=== PATIENT | female | born 1970 | race Caucasian/White ===

== ENCOUNTER 2016-12-11 11:51 | Inpatient (IN) | payer BC ==
[~2016-12-11] VITALS: Ht 154.9 cm; Wt 63.4 kg
[2016-12-11] MEDS: SODIUM CHLORIDE 0.9% 1,000 ML IV SCH ×3 (12:28→18:07)
[2016-12-11] MEDS ORDERED: InsuLIN R (HUMAN) 100 UNITS in SODIUM CHL 0.9% 99 ML IV SCH ×2 (12:28→14:38)
[2016-12-11] MEDS ORDERED: DEXTROSE (50%) 50ML SYRG IV PRN ×2 (12:30→14:45)
[2016-12-11 13:07] LABS: Basophils # (auto) 0.1 uL; Basophils % (auto) 0.7 % (0.0-2.0); CONDITION Y; Eosinophils # (auto) 0 uL; Eosinophils % (auto) 0.1 % (0.0-7.0); Hematocrit 44.4 % (36.0-46.0); Hemoglobin 14.7 g/dL (12.2-16.2); Lymphocytes # (auto) 2.4 uL; Lymphocytes % (auto) 15.4 % (10.0-50.0); Mean Corpuscular Hemoglobin 33.4 pg (28.0-32.0); Mean Corpuscular Hgb Conc. 33.2 g/dL (32.0-36.0); Mean Corpuscular Volume 100.7 fL (80.0-100.0); Mean Platelet Volume 8.7 fL (7.4-10.4); Monocytes # (auto) 0.5 uL; Neutrophils # (auto) 12.5 uL; Neutrophils % (auto) 80.8 % (37.0-80.0); Platelet Count (auto) 436 10^3/uL (140-450); Red Cell Distribution Width 14.5 % (11.6-16.0); White Blood Cell 15.4 10^3/uL (4.4-10.8)
[2016-12-11] MEDS: ACCU-CHEK COMFORT CURVE STRIP VI SCH ×18 (13:36→23:59)
[2016-12-11 14:26] LABS: Urine RBC None Seen /hpf (0 - 4)
[2016-12-11] MEDS ORDERED: SODIUM CHLORIDE 0.9% 1,000 ML IV SCH ×3 (14:38→20:38)
[2016-12-11 14:41] LABS: Urine Bilirubin Negative (Negative); Urine Blood Negative /uL (Negative); Urine Glucose 4+ mg/dL (Normal); Urine Ketone 4+ (Negative); Urine Mucus FEW (None Seen); Urine Nitrite Negative (Negative); Urine Squamous Epithelial Cell FEW /hpf (<5); Urine Urobilinogen Normal (Negative)
[2016-12-11 14:43] LABS: Urine Color Straw (Yellow)
[2016-12-11] MEDS ORDERED: POTASSIUM CHL 20MEQ/100ML 200 ML IV PRN (14:45)
[2016-12-11] MEDS ORDERED: MORPHINE SULF INJ 2 MG/ML SYRINGE 1ML IV PRN ×2 (14:45)
[2016-12-11] MEDS ORDERED: LORazepam 2MG/ML-1ML VIAL IV PRN (14:45)
[2016-12-11] MEDS ORDERED: POTASSIUM CHL 10MEQ/50ML 150 ML IV PRN (14:45)
[2016-12-11] MEDS ORDERED: MAGNESIUM SULFATE 1GM/100ML 200 ML IV ONE (14:45)
[2016-12-11] MEDS ORDERED: POTASSIUM CHL 20MEQ/100ML 100 ML IV PRN (14:45)
[2016-12-11] MEDS ORDERED: ONDANSETRON HCL 4 MG/2 ML VIAL IV PRN (14:45)
[2016-12-11] MEDS ORDERED: HYDROcodone-ACET 5/325MG TAB PO PRN (14:45)
[2016-12-11] MEDS ORDERED: cefTRIAXone 1GM/50ML D5W 50 ML IV ONE (14:45)
[2016-12-11] MEDS ORDERED: NITROGLYCERIN 0.4 MG SL TAB SL PRN (14:45)
[2016-12-11] MEDS ORDERED: INSLANTI SC (14:55)
[2016-12-11] MEDS ORDERED: INSLISPI SC (14:55)
[2016-12-11] MEDS ORDERED: THIAMINE HCL 100 MG TAB PO ONE (15:00)
[2016-12-11] MEDS ORDERED: FOLIC ACID 1 MG TAB PO ONE (15:00)
[2016-12-11] MEDS: InsuLIN R (HUMAN) 100 UNITS in SODIUM CHL 0.9% 99 ML IV SCH (15:06)
[2016-12-11] MEDS ORDERED: MULTIPLE VITAMINS W/ MINERALS TAB PO ONE (15:45)
[2016-12-11 16:32] LABS: Potassium 4.6 mmol/L (3.5-5.1)
[2016-12-11 16:33] LABS: BUN/Creatinine Ratio 18.5; Calcium 8.5 mg/dL (8.5-10.1); Magnesium 3.7 mg/dL (1.6-2.6)
[2016-12-11 19:17] LABS: BUN/Creatinine Ratio 21.7; Calcium 8.2 mg/dL (8.5-10.1); Magnesium 3.2 mg/dL (1.6-2.6); Potassium 3.9 mmol/L (3.5-5.1)
[2016-12-11 20:00] VITALS: BP 126/67
[2016-12-11 21:00] VITALS: BP 120/68
[2016-12-11 22:00] VITALS: BP 116/53
[2016-12-11] MEDS ORDERED: POTASSIUM CHL 10MEQ/50ML 50 ML IV PRN (22:45)
[2016-12-11 23:00] VITALS: BP 121/52
[2016-12-12] VITALS (34 sets, daily range): BP systolic 100–125; BP diastolic 44–83
[2016-12-12] MEDS: InsuLIN R (HUMAN) 100 UNITS in SODIUM CHL 0.9% 99 ML IV SCH ×2 (00:38→12:21)
[2016-12-12] MEDS: SODIUM CHLORIDE 0.9% 1,000 ML IV SCH ×4 (01:08→20:52)
[2016-12-12] MEDS ORDERED: PANT40TA2 PO (01:12)
[2016-12-12] MEDS ORDERED: LEV50T PO (01:12)
[2016-12-12] MEDS ORDERED: TRAZ150T79 PO (01:12)
[2016-12-12] MEDS ORDERED: SIMV10TA84 PO (01:12)
[2016-12-12] MEDS ORDERED: OXCA600T3 PO (01:12)
[2016-12-12] MEDS ORDERED: LEVO88TA4 PO (01:12)
[2016-12-12] MEDS ORDERED: LEVEMIR SC (01:12)
[2016-12-12] MEDS ORDERED: KETO75CA PO (01:12)
[2016-12-12] MEDS: ACCU-CHEK COMFORT CURVE STRIP VI SCH ×21 (01:19→22:16)
[2016-12-12 03:45] LABS: Basophils # (auto) 0 uL; Basophils % (auto) 0.3 % (0.0-2.0); Eosinophils # (auto) 0 uL; Eosinophils % (auto) 0.1 % (0.0-7.0); Hematocrit 32.5 % (36.0-46.0); Lymphocytes # (auto) 3.8 uL; Lymphocytes % (auto) 29.5 % (10.0-50.0); Mean Corpuscular Hemoglobin 33.3 pg (28.0-32.0); Mean Corpuscular Hgb Conc. 33.8 g/dL (32.0-36.0); Mean Corpuscular Volume 98.5 fL (80.0-100.0); Mean Platelet Volume 7.3 fL (7.4-10.4); Monocytes % (auto) 7.7 % (0.0-12.0); Neutrophils % (auto) 62.4 % (37.0-80.0); Platelet Count (auto) 227 10^3/uL (140-450); Red Cell Distribution Width 12.9 % (11.6-16.0); White Blood Cell 12.8 10^3/uL (4.4-10.8)
[2016-12-12 04:01] LABS: Albumin 2.8 g/dL (3.4-5.0); Potassium 3.7 mmol/L (3.5-5.1)
[2016-12-12 04:03] LABS: BUN/Creatinine Ratio 15.6
[2016-12-12 04:06] LABS: Bilirubin, Total 0.4 mg/dL (0.2-1.0); Total Protein 5.4 g/dL (6.4-8.2)
[2016-12-12] MEDS: cefTRIAXone 1GM/50ML D5W 50 ML IV SCH (09:23)
[2016-12-12] MEDS: MULTIPLE VITAMINS W/ MINERALS TAB PO SCH (10:17)
[2016-12-12] MEDS: FOLIC ACID 1 MG TAB PO SCH (10:17)
[2016-12-12] MEDS: THIAMINE HCL 100 MG TAB PO SCH (10:17)
[2016-12-12] MEDS ORDERED: DEXTROSE (50%) 50ML SYRG IV PRN (11:15)
[2016-12-12] MEDS ORDERED: INSULIN DETEMIR(LEVEMIR) 1unit/0.01ml Soln (100units/ml) SC ONE (11:15)
[2016-12-12] MEDS: InsuLIN REG 1unit/0.01ml Soln (100units/ml) SC SCH ×2 (11:30→18:00)
[2016-12-12 16:18] LABS: Urine Bilirubin Negative (Negative); Urine Blood Negative /uL (Negative); Urine Color Yellow (Yellow); Urine Glucose Normal (Normal); Urine Ketone 1+ (Negative); Urine Nitrite Negative (Negative); Urine RBC 8 /hpf (0 - 4); Urine Squamous Epithelial Cell MOD /hpf (<5); Urine Urobilinogen Normal (Negative); Urine pH 5.5 (5.0-8.0)
[2016-12-12] MEDS ORDERED: InsuLIN REG 1unit/0.01ml Soln (100units/ml) SC SCH (22:00)
[2016-12-12] MEDS: INSULIN DETEMIR(LEVEMIR) 1unit/0.01ml Soln (100units/ml) SC SCH (22:16)
[2016-12-13 02:00] VITALS: BP 120/65
[2016-12-13 05:00] VITALS: BP 111/67
[2016-12-13] MEDS: InsuLIN REG 1unit/0.01ml Soln (100units/ml) SC SCH ×2 (05:01→11:53)
[2016-12-13] MEDS: ACCU-CHEK COMFORT CURVE STRIP VI SCH ×2 (05:01→11:53)
[2016-12-13] MEDS: SODIUM CHLORIDE 0.9% 1,000 ML IV SCH (05:02)
[2016-12-13 05:58] LABS: Hematocrit 36.2 % (36.0-46.0); Hemoglobin 12.5 g/dL (12.2-16.2); Mean Corpuscular Hemoglobin 33.5 pg (28.0-32.0); Mean Corpuscular Hgb Conc. 34.4 g/dL (32.0-36.0); Mean Corpuscular Volume 97.5 fL (80.0-100.0); Mean Platelet Volume 7.6 fL (7.4-10.4); Platelet Count (auto) 204 10^3/uL (140-450); Red Cell Distribution Width 12.9 % (11.6-16.0); White Blood Cell 7.1 10^3/uL (4.4-10.8)
[2016-12-13 06:03] LABS: Metamyelocytes % 0; Myelocytes % 0; Promyelocytes % 0; Reactive Lymphocytes 0
[2016-12-13 06:24] LABS: Calcium 8.9 mg/dL (8.5-10.1)
[2016-12-13 06:27] LABS: BUN/Creatinine Ratio 18.4
[2016-12-13 06:49] LABS: Platelet Estimate Adequate
[2016-12-13 06:50] LABS: RBC Morphology Normal
[2016-12-13 09:00] VITALS: BP 121/67
[2016-12-13] MEDS: cefTRIAXone 1GM/50ML D5W 50 ML IV SCH (09:35)
[2016-12-13] MEDS: MULTIPLE VITAMINS W/ MINERALS TAB PO SCH (09:35)
[2016-12-13] MEDS: THIAMINE HCL 100 MG TAB PO SCH (09:35)
[2016-12-13] MEDS: FOLIC ACID 1 MG TAB PO SCH (09:35)
[2016-12-13] MEDS: INSULIN DETEMIR(LEVEMIR) 1unit/0.01ml Soln (100units/ml) SC SCH (09:36)
[2016-12-13] MEDS ORDERED: POTASSIUM CHL 20 Meq TABLET PO ONE (11:15)
[2016-12-13 12:01] VITALS: BP 121/67
[2016-12-13 13:00] VITALS: BP 122/62
== END 2016-12-13 14:00 | disposition home or self-care (01) | DRG 682 ==
LOC: ER 11:51 → TELE 11:52 → ICU WEST 20:31 → EAST 12-13 00:17
PROVIDERS: ADMIT Internal Medicine; ATTEND Internal Medicine
DX: N17.9 Acute kidney failure, unspecified (principal); E13.10 Other specified diabetes mellitus with ketoacidosis without coma; N39.0 Urinary tract infection, site not specified; I10 Essential (primary) hypertension; E03.9 Hypothyroidism, unspecified; E86.0 Dehydration; F17.210 Nicotine dependence, cigarettes, uncomplicated; J45.909 Unspecified asthma, uncomplicated; F15.10 Other stimulant abuse, uncomplicated; F12.10 Cannabis abuse, uncomplicated; F11.10 Opioid abuse, uncomplicated; F10.10 Alcohol abuse, uncomplicated; Z79.4 Long term (current) use of insulin
CPT/HCPCS: 36415; 36600; 71010; 80048; 80053; 80307; 81001; 82010; 82805; 82962; 83036; 83735; 83930; 84100; 85007; 85025; 85027; 87081; 96365; 96367; J0696; J1815

== ENCOUNTER 2017-02-08 21:51 | Inpatient (IN) | payer BC ==
[~2017-02-08] VITALS: Ht 165.1 cm; Wt 67.1 kg
[~2017-02-08 21:51] MED LIST: INSLANTI SC; INSLISPI SC; KETO75CA PO; LEV50T PO; LEVEMIR SC; LEVO88TA4 PO; OXCA600T3 PO; PANT40TA2 PO; SIMV10TA84 PO; TRAZ150T79 PO
[2017-02-08] MEDS ORDERED: InsuLIN REG 1unit/0.01ml Soln (100units/ml) ONE (22:30)
[2017-02-08] MEDS ORDERED: SODIUM CHLORIDE 0.9% 500 ML IV ONE (22:30)
[2017-02-08 22:37] LABS: Basophils # (auto) 0.1 uL; Eosinophils # (auto) 0 uL
[2017-02-08 22:38] LABS: Basophils % (auto) 0.3 % (0.0-2.0); Eosinophils % (auto) 0.1 % (0.0-7.0); Hematocrit 42.4 % (36.0-46.0); Hemoglobin 13.2 g/dL (12.2-16.2); Lymphocytes # (auto) 1.9 uL; Mean Corpuscular Hemoglobin 32.9 pg (28.0-32.0); Mean Corpuscular Hgb Conc. 31.1 g/dL (32.0-36.0); Mean Corpuscular Volume 105.8 fL (80.0-100.0); Monocytes # (auto) 0.9 uL; Monocytes % (auto) 5.9 % (0.0-12.0); Neutrophils % (auto) 80.7 % (37.0-80.0); Platelet Count (auto) 355 10^3/uL (140-450); Red Cell Distribution Width 14.1 % (11.8-14.3); White Blood Cell 14.9 10^3/uL (4.4-10.8)
[2017-02-08] MEDS ORDERED: InsuLIN REG 1unit/0.01ml Soln (100units/ml) IV ONE (22:45)
[2017-02-08] MEDS ORDERED: SODIUM CHLORIDE 0.9% 1,000 ML IV ONE (22:45)
[2017-02-08 22:46] LABS: INR 0.92 (0.9-1.15); Lactic Acid w/Reflex 2.1 mmol/L (0.4-2.0); Partial Thromboplastin Time 24.5 sec (22.64-33.71)
[2017-02-08 22:50] LABS: Albumin 3.6 g/dL (3.4-5.0); Alkaline Phosphatase 169 U/L (45-117); Anion Gap 29 (5-15); Aspartate Aminotransferase 26 U/L (15-37); BUN/Creatinine Ratio 25.2; Bilirubin, Total 0.9 mg/dL (0.2-1.0); Blood Urea Nitrogen 32 mg/dL (7-18); Calcium 10.3 mg/dL (8.5-10.1); Carbon Dioxide 12 mmol/L (21-32); Chloride 87 mmol/L (98-107); GFR African American 58 mL/min; GFR Non-African American 48 mL/min; Potassium 4.5 mmol/L (3.5-5.1); Sodium 128 mmol/L (136-145); Total Protein 6.7 g/dL (6.4-8.2)
[2017-02-08 22:57] LABS: REFLEX LACTIC ACID YES OR NO YES
[2017-02-08 23:12] LABS: Glucose 925 mg/dL (74-106)
[2017-02-08 23:18] LABS: Urine RBC None Seen /hpf (0 - 4)
[2017-02-08 23:32] LABS: Urine Bilirubin Negative (Negative); Urine Blood Negative /uL (Negative); Urine Color Colorless (Yellow); Urine Glucose 4+ mg/dL (Normal); Urine Hyaline Cast FEW /lpf (0 - 2); Urine Ketone 4+ (Negative); Urine Nitrite Negative (Negative); Urine Urobilinogen Normal (Negative)
[2017-02-09] MEDS ORDERED: InsuLIN R (HUMAN) 100 UNITS in SODIUM CHL 0.9% 99 ML IV SCH (00:15)
[2017-02-09] MEDS: SODIUM CHLORIDE 0.9% 1,000 ML IV SCH ×2 (00:15→03:45)
[2017-02-09] MEDS: SOD CHL 0.9%/ KCL 20MEQ 1,000 ML IV SCH ×3 (00:15→10:50)
[2017-02-09] MEDS: MAGNESIUM SULFATE 1GM/100ML 200 ML IV ONE (00:15)
[2017-02-09] MEDS ORDERED: DEXTROSE (50%) 50ML SYRG IV PRN ×2 (00:15→11:45)
[2017-02-09 01:09] LABS: Basophils # (auto) 0.1 uL; Basophils % (auto) 0.4 % (0.0-2.0); Eosinophils # (auto) 0 uL; Hematocrit 41.4 % (36.0-46.0); Hemoglobin 13.4 g/dL (12.2-16.2); Lymphocytes # (auto) 1.3 uL; Lymphocytes % (auto) 9.7 % (10.0-50.0); Mean Corpuscular Hemoglobin 32.4 pg (28.0-32.0); Mean Corpuscular Hgb Conc. 32.3 g/dL (32.0-36.0); Mean Corpuscular Volume 100.2 fL (80.0-100.0); Mean Platelet Volume 7.2 fL (6.9-10.8); Monocytes # (auto) 0.6 uL; Monocytes % (auto) 4.9 % (0.0-12.0); Neutrophils # (auto) 11.2 uL; Platelet Count (auto) 311 10^3/uL (140-450); Red Cell Distribution Width 13.3 % (11.8-14.3); White Blood Cell 13.2 10^3/uL (4.4-10.8)
[2017-02-09 01:15] LABS: Allen Test Yes; Blood 02Sat 95.2 % (96-100); Blood COHb 0.3 % (0.5-1.5); Blood MetHb 0.1 % (0.0-1.5); HCO3 12.2 mmol/L (22-26.0); HHb 4.8 % (0.0-5.0); MODE ROOM AIR; O2Hb 94.8 % (94.0-97.0); PCO2 27.3 mmHg (35.0-45.0); PCO2(T) 27.3 mmHg (35.0-45.0); PO2 89.7 mmHg (80.0-100.0); PO2(T) 89.7 mmHg (80.0-100.0); Sample Type Arterial; pH 7.269 (7.350-7.450)
[2017-02-09 01:32] LABS: BUN/Creatinine Ratio 30.4; Calcium 9.8 mg/dL (8.5-10.1); Magnesium 2.8 mg/dL (1.6-2.6); Potassium 4.3 mmol/L (3.5-5.1)
[2017-02-09] MEDS: ACCU-CHEK COMFORT CURVE STRIP VI SCH ×10 (01:57→17:29)
[2017-02-09] MEDS ORDERED: ONDANSETRON HCL 4 MG/2 ML VIAL IV PRN (02:00)
[2017-02-09] MEDS ORDERED: cefTRIAXone 1GM/50ML D5W 50 ML IV ONE (02:00)
[2017-02-09] MEDS ORDERED: NITROGLYCERIN 0.4 MG SL TAB SL PRN (02:00)
[2017-02-09 03:30] LABS: Phosphorus 4.6 mg/dL (2.5-4.90)
[2017-02-09] MEDS ORDERED: SODIUM CHLORIDE 0.9% 1,000 ML IV SCH (04:15)
[2017-02-09 07:15] LABS: Calcium 8.5 mg/dL (8.5-10.1); Potassium 4.1 mmol/L (3.5-5.1)
[2017-02-09 07:19] LABS: BUN/Creatinine Ratio 31.3
[2017-02-09] MEDS ORDERED: PANTOPRAZOLE 40 MG/10 ML VIAL IV SCH (10:00)
[2017-02-09] MEDS: ENOXAPARIN SOD 40 MG/0.4 ML SYRINGE SC SCH (10:15)
[2017-02-09] MEDS ORDERED: D5W/SOD CHLO 0.9% 1,000 ML IV SCH (11:30)
[2017-02-09] MEDS ORDERED: INSULIN DETEMIR(LEVEMIR) 1unit/0.01ml Soln (100units/ml) SC ONE (11:45)
[2017-02-09] MEDS ORDERED: PANTOPRAZOLE 40 MG TAB PO ONE (13:30)
[2017-02-09] MEDS ORDERED: OXcarbazepine 300 MG TAB PO ONE (13:30)
[2017-02-09] MEDS ORDERED: LEVOTHYROXINE SODIUM 88 MCG TAB PO ONE (13:30)
[2017-02-09] MEDS ORDERED: MULTIPLE VITAMINS W/ MINERALS TAB PO ONE (13:30)
[2017-02-09 15:01] LABS: BUN/Creatinine Ratio 16.9; Calcium 8.6 mg/dL (8.5-10.1); Potassium 4.1 mmol/L (3.5-5.1)
[2017-02-09] MEDS: InsuLIN REG 1unit/0.01ml Soln (100units/ml) SC SCH (17:29)
[2017-02-09] MEDS ORDERED: InsuLIN REG 1unit/0.01ml Soln (100units/ml) SC SCH (22:00)
[2017-02-09] MEDS ORDERED: cefTRIAXone 1GM/50ML D5W 50 ML IV SCH (22:00)
[2017-02-10] MEDS: ACCU-CHEK COMFORT CURVE STRIP VI SCH ×3 (00:20→12:05)
[2017-02-10] MEDS: INSULIN DETEMIR(LEVEMIR) 1unit/0.01ml Soln (100units/ml) SC SCH ×3 (00:21→22:07)
[2017-02-10] MEDS: traZODone HCL 50 MG TAB PO SCH ×2 (00:31→21:58)
[2017-02-10] MEDS: ATORVASTATIN 20 MG TAB PO SCH ×2 (00:31→21:59)
[2017-02-10] MEDS: OXcarbazepine 300 MG TAB PO SCH ×3 (00:31→21:59)
[2017-02-10 00:50] VITALS: BP 109/55
[2017-02-10] MEDS ORDERED: INFLUENZA QUAD 2017-2018 0.5 ML SYRG IM ONE (02:00)
[2017-02-10 05:00] VITALS: BP 110/68
[2017-02-10] MEDS: LEVOTHYROXINE SODIUM 88 MCG TAB PO SCH (05:44)
[2017-02-10 06:38] LABS: Basophils # (auto) 0 uL; Basophils % (auto) 0.4 % (0.0-2.0); Eosinophils # (auto) 0 uL; Eosinophils % (auto) 0.6 % (0.0-7.0); Hematocrit 36.8 % (36.0-46.0); Hemoglobin 12.7 g/dL (12.2-16.2); Lymphocytes # (auto) 3.5 uL; Lymphocytes % (auto) 45.2 % (10.0-50.0); Mean Corpuscular Hemoglobin 33.4 pg (28.0-32.0); Mean Corpuscular Hgb Conc. 34.4 g/dL (32.0-36.0); Mean Corpuscular Volume 97.1 fL (80.0-100.0); Mean Platelet Volume 7.2 fL (6.9-10.8); Monocytes # (auto) 0.4 uL; Monocytes % (auto) 5.8 % (0.0-12.0); Neutrophils # (auto) 3.7 uL; Nucleated Red Blood Cells % 0.1 %; Platelet Count (auto) 279 10^3/uL (140-450); Red Cell Distribution Width 13.2 % (11.8-14.3); White Blood Cell 7.8 10^3/uL (4.4-10.8)
[2017-02-10 06:50] LABS: Albumin 2.8 g/dL (3.4-5.0); Calcium 8.7 mg/dL (8.5-10.1)
[2017-02-10 06:57] LABS: Bilirubin, Total 0.5 mg/dL (0.2-1.0); Total Protein 5.6 g/dL (6.4-8.2)
[2017-02-10] MEDS: InsuLIN REG 1unit/0.01ml Soln (100units/ml) SC SCH ×2 (07:00→12:05)
[2017-02-10 09:00] VITALS: BP 125/69
[2017-02-10] MEDS: MULTIPLE VITAMINS W/ MINERALS TAB PO SCH (10:00)
[2017-02-10] MEDS: ENOXAPARIN SOD 40 MG/0.4 ML SYRINGE SC SCH (10:00)
[2017-02-10] MEDS: PANTOPRAZOLE 40 MG TAB PO SCH (10:16)
[2017-02-10] MEDS ORDERED: LISI10TA6 PO (11:23)
[2017-02-10] MEDS ORDERED: D5W/SOD CHLO 0.9% 1,000 ML IV SCH (11:30)
[2017-02-10 13:00] VITALS: BP 119/65
[2017-02-10] MEDS ORDERED: POTASSIUM CHL 20 Meq TABLET PO ONE (13:00)
[2017-02-10] MEDS ORDERED: SIMV10TA84 PO (13:08)
[2017-02-10] MEDS ORDERED: LEVO88TA4 PO (13:08)
[2017-02-10] MEDS ORDERED: TRAZ150T79 PO (13:08)
[2017-02-10] MEDS ORDERED: INSLANTI SC (13:08)
[2017-02-10] MEDS ORDERED: InsuLIN R (HUMAN) 100 UNITS in SODIUM CHL 0.9% 99 ML IV SCH (13:45)
[2017-02-10 14:20] LABS: BUN/Creatinine Ratio 11.6; Calcium 8.5 mg/dL (8.5-10.1)
[2017-02-10 14:22] LABS: Lactic Acid w/Reflex 4.6 mmol/L (0.4-2.0)
[2017-02-10 14:32] LABS: REFLEX LACTIC ACID YES OR NO NO
[2017-02-10] MEDS ORDERED: DEXTROSE (50%) 50ML SYRG IV PRN ×2 (16:00→18:45)
[2017-02-10] MEDS: SODIUM CHLORIDE 0.9% 1,000 ML IV SCH (16:25)
[2017-02-10 16:50] VITALS: BP 125/50
[2017-02-10] MEDS ORDERED: ACCU-CHEK COMFORT CURVE STRIP VI SCH (17:00)
[2017-02-10] MEDS ORDERED: InsuLIN REG 1unit/0.01ml Soln (100units/ml) SC SCH (17:00)
[2017-02-10] MEDS ORDERED: InsuLIN REG 1unit/0.01ml Soln (100units/ml) SC ONE (18:45)
[2017-02-11] MEDS: InsuLIN REG 1unit/0.01ml Soln (100units/ml) SC SCH ×5 (00:37→21:48)
[2017-02-11 04:39] VITALS: BP 94/49
[2017-02-11] MEDS: SODIUM CHLORIDE 0.9% 1,000 ML IV SCH ×2 (05:20→20:24)
[2017-02-11] MEDS: LEVOTHYROXINE SODIUM 88 MCG TAB PO SCH (06:24)
[2017-02-11] MEDS: ACCU-CHEK COMFORT CURVE STRIP VI SCH ×6 (06:24→21:48)
[2017-02-11] MEDS: INSULIN DETEMIR(LEVEMIR) 1unit/0.01ml Soln (100units/ml) SC SCH ×2 (06:26→21:48)
[2017-02-11 07:10] LABS: Lactic Acid w/Reflex 2.5 mmol/L (0.4-2.0)
[2017-02-11 07:12] LABS: Potassium 3.1 mmol/L (3.5-5.1)
[2017-02-11 07:18] LABS: BUN/Creatinine Ratio 33.3; Calcium 8.5 mg/dL (8.5-10.1)
[2017-02-11 07:33] LABS: REFLEX LACTIC ACID YES OR NO NO
[2017-02-11 09:24] VITALS: BP 136/67
[2017-02-11] MEDS: ENOXAPARIN SOD 40 MG/0.4 ML SYRINGE SC SCH (10:18)
[2017-02-11] MEDS: MULTIPLE VITAMINS W/ MINERALS TAB PO SCH (10:18)
[2017-02-11] MEDS: PANTOPRAZOLE 40 MG TAB PO SCH (10:19)
[2017-02-11] MEDS: OXcarbazepine 300 MG TAB PO SCH ×2 (10:19→21:34)
[2017-02-11] MEDS ORDERED: POTASSIUM CHL 20 Meq TABLET PO ONE (11:00)
[2017-02-11] MEDS ORDERED: DEXTROSE (50%) 50ML SYRG IV PRN (11:00)
[2017-02-11] MEDS: chlordiazePOXIDE HCL 5 MG CAP PO PRN (11:21)
[2017-02-11 12:48] VITALS: BP 141/77
[2017-02-11 17:00] VITALS: BP 127/84
[2017-02-11] MEDS: traZODone HCL 50 MG TAB PO SCH (21:34)
[2017-02-11] MEDS: ATORVASTATIN 20 MG TAB PO SCH (21:34)
[2017-02-11 21:53] VITALS: BP 119/64
[2017-02-12] MEDS: SODIUM CHLORIDE 0.9% 1,000 ML IV SCH (02:26)
[2017-02-12 05:20] VITALS: BP 138/67
[2017-02-12] MEDS: ACCU-CHEK COMFORT CURVE STRIP VI SCH (05:59)
[2017-02-12] MEDS: LEVOTHYROXINE SODIUM 88 MCG TAB PO SCH (05:59)
[2017-02-12] MEDS: InsuLIN REG 1unit/0.01ml Soln (100units/ml) SC SCH (05:59)
[2017-02-12] MEDS: INSULIN DETEMIR(LEVEMIR) 1unit/0.01ml Soln (100units/ml) SC SCH (06:46)
[2017-02-12 07:07] LABS: Potassium 3.8 mmol/L (3.5-5.1)
[2017-02-12 07:09] LABS: Calcium 8.4 mg/dL (8.5-10.1); Magnesium 1.6 mg/dL (1.6-2.6)
[2017-02-12 07:15] LABS: Lactic Acid w/Reflex 2.6 mmol/L (0.4-2.0)
[2017-02-12 07:25] LABS: REFLEX LACTIC ACID YES OR NO NO
[2017-02-12 08:08] VITALS: BP 110/59
[2017-02-12] MEDS: PANTOPRAZOLE 40 MG TAB PO SCH (09:14)
[2017-02-12] MEDS: ENOXAPARIN SOD 40 MG/0.4 ML SYRINGE SC SCH (09:14)
[2017-02-12] MEDS: OXcarbazepine 300 MG TAB PO SCH (09:14)
[2017-02-12] MEDS: MULTIPLE VITAMINS W/ MINERALS TAB PO SCH (09:14)
[2017-02-12] MEDS: chlordiazePOXIDE HCL 5 MG CAP PO PRN (09:17)
== END 2017-02-12 12:00 | disposition home or self-care (01) | DRG 637 ==
LOC: EDBD 21:51 → ER 21:55 → TELE 21:56 → TELE-CENTR 02-10 00:50 → CENTRAL 02-12 00:22
PROVIDERS: ADMIT Nurse Practitioner; ATTEND Internal Medicine
DX: E11.10 Type 2 diabetes mellitus with ketoacidosis without coma (principal); G92 Toxic encephalopathy; N17.0 Acute kidney failure with tubular necrosis; R65.10 Systemic inflammatory response syndrome (SIRS) of non-infectious origin without acute organ dysfunction; Z91.14 Patient's other noncompliance with medication regimen; E03.9 Hypothyroidism, unspecified; E87.6 Hypokalemia; E11.649 Type 2 diabetes mellitus with hypoglycemia without coma; F15.10 Other stimulant abuse, uncomplicated; F17.210 Nicotine dependence, cigarettes, uncomplicated; F32.9 Major depressive disorder, single episode, unspecified; F41.9 Anxiety disorder, unspecified; I10 Essential (primary) hypertension; Z91.19 Patient's noncompliance with other medical treatment and regimen; Z79.4 Long term (current) use of insulin; Z83.3 Family history of diabetes mellitus; Z82.49 Family history of ischemic heart disease and other diseases of the circulatory system; Z91.013 Allergy to seafood
CPT/HCPCS: 36415; 36600; 70450; 71010; 80048; 80053; 80307; 80320; 81001; 82010; 82805; 82962; 83036; 83605; 83735; 83930; 84100; 84443; 84484; 84702; 85025; 85379; 85610; 85730; 87040; 93005; 96361; 96365; 96375; C9113; J0696; J1815; J7042

== ENCOUNTER 2017-03-13 06:35 | Inpatient (IN) | payer BC ==
[~2017-03-13] VITALS: Ht 165.1 cm; Wt 58.5 kg
[~2017-03-13 06:35] MED LIST changes: -KETO75CA PO; -LEV50T PO; -LEVEMIR SC; +LISI10TA6 PO
[2017-03-13] MEDS ORDERED: SODIUM CHLORIDE 0.9% 1,000 ML IV ONE ×4 (06:56→16:38)
[2017-03-13] MEDS ORDERED: diphenhdrAMINE HCL 50 MG/1 ML VL IV ONE (07:00)
[2017-03-13] MEDS ORDERED: LORazepam 2MG/ML-1ML VIAL IV ONE (07:00)
[2017-03-13 07:05] LABS: Basophils # (auto) 0.1 uL; Eosinophils # (auto) 0 uL; Eosinophils % (auto) 0.2 % (0.0-7.0); Mean Platelet Volume 8.4 fL (6.9-10.8); Red Cell Distribution Width 14.2 % (11.8-14.3); White Blood Cell 19.2 10^3/uL (4.4-10.8)
[2017-03-13 07:09] LABS: Basophils % (auto) 0.4 % (0.0-2.0); Hematocrit 46.7 % (36.0-46.0); Hemoglobin 12.7 g/dL (12.2-16.2); Lymphocytes # (auto) 3.6 uL; Mean Corpuscular Hemoglobin 32.2 pg (28.0-32.0); Mean Corpuscular Hgb Conc. 27.2 g/dL (32.0-36.0); Mean Corpuscular Volume 118.4 fL (80.0-100.0); Neutrophils # (auto) 14.4 uL; Neutrophils % (auto) 75.4 % (37.0-80.0); Platelet Count (auto) 310 10^3/uL (140-450)
[2017-03-13 07:25] LABS: Albumin 3.7 g/dL (3.4-5.0); BUN/Creatinine Ratio 20.5; Bilirubin, Total 0.4 mg/dL (0.2-1.0); Potassium 5.5 mmol/L (3.5-5.1); Total Protein 6.8 g/dL (6.4-8.2)
[2017-03-13] MEDS ORDERED: SUCCINYLCHOLINE CHLORIDE 20 MG/ML 10ML VIAL IV ONE ×2 (07:34→07:45)
[2017-03-13] MEDS ORDERED: ETOMIDATE (2MG/ML) 20ML VIAL IV ONE ×2 (07:34→07:45)
[2017-03-13] MEDS ORDERED: DEXTROSE (50%) 50ML SYRG IV PRN ×3 (07:45→23:15)
[2017-03-13 07:46] LABS: Lactic Acid w/Reflex 5.6 mmol/L (0.4-2.0)
[2017-03-13] MEDS ORDERED: MIDAZOLAM DRIP 50 mg/50mL 50 ML IV ONE (07:48)
[2017-03-13 07:49] LABS: REFLEX LACTIC ACID YES OR NO YES
[2017-03-13] MEDS ORDERED: MIDAZOLAM DRIP 50 mg/50mL 50 ML IV SCH (07:49)
[2017-03-13 07:54] LABS: INR 0.94 (0.9-1.15); Partial Thromboplastin Time 29.6 sec (22.64-33.71); Prothrombin Time 10.2 sec (9.37-12.3)
[2017-03-13] MEDS ORDERED: InsuLIN R (HUMAN) 100 UNITS in SODIUM CHL 0.9% 99 ML IV SCH ×5 (08:00→23:41)
[2017-03-13 08:04] LABS: Base Excess -30.2 mmol/L (-2.0-2.0); Blood 02Sat 96.8 % (96-100); Blood COHb 0.1 % (0.5-1.5); Blood MetHb 0.4 % (0.0-1.5); HCO3 2.2 mmol/L (22-26.0); HHb 3.2 % (0.0-5.0); MODE ROOM AIR; O2Hb 96.3 % (94.0-97.0); PCO2 12.9 mmHg (35.0-45.0); PCO2(T) 12.9 mmHg (35.0-45.0); PO2 146.4 mmHg (80.0-100.0); PO2(T) 146.4 mmHg (80.0-100.0); Sample Type Arterial; pH 6.853 (7.350-7.450)
[2017-03-13 08:18] LABS: Magnesium 2.6 mg/dL (1.6-2.6)
[2017-03-13 08:24] LABS: B-Type Natriuretic Peptide 81.59 pg/mL (0-100)
[2017-03-13 08:25] LABS: Macrocytosis Marked; Platelet Estimate Adequate
[2017-03-13 08:27] LABS: Phosphorus 8.2 mg/dL (2.5-4.90); Temperature: 23.9 C (20.0-25.0)
[2017-03-13] MEDS: SODIUM CHLORIDE 0.9% 1,000 ML IV SCH ×4 (08:30→22:41)
[2017-03-13 08:33] LABS: Urine Bilirubin Negative (Negative); Urine Blood Negative /uL (Negative); Urine Glucose 4+ mg/dL (Normal); Urine Ketone 3+ (Negative); Urine Mucus FEW (None Seen); Urine Nitrite Negative (Negative); Urine RBC <1 /hpf (0 - 4); Urine Squamous Epithelial Cell FEW /hpf (<5); Urine Urobilinogen Normal (Negative)
[2017-03-13 08:34] LABS: Urine Color Straw (Yellow)
[2017-03-13] MEDS ORDERED: NOREPINEPHRINE 8 MG/250ML KIT 250 ML IV ONE (08:43)
[2017-03-13] MEDS ORDERED: NOREPINEPHRINE 8 MG/250ML KIT 250 ML IV SCH (08:52)
[2017-03-13] MEDS: ACCU-CHEK COMFORT CURVE STRIP VI SCH ×10 (09:01→22:52)
[2017-03-13] MEDS ORDERED: SODIUM BICARBONATE INFANT SYR 10 ML SYRG IV ONE (09:25)
[2017-03-13] MEDS ORDERED: SODIUM BICARBONATE 8.4% INJ 50ML SYRINGE ONE ×3 (09:26→11:45)
[2017-03-13] MEDS ORDERED: SODIUM BICARBONATE 8.4 % INJ 50ML VIAL IV ONE ×3 (09:30→12:00)
[2017-03-13] MEDS ORDERED: SODIUM BICARB 50ML SYR 150 ML in SODIUM CHLORIDE 0.9% 1,000 ML IV ONE (09:45)
[2017-03-13] MEDS: fentaNYL Drip 2500mCg/250mlNS 250 ML IV SCH (10:01)
[2017-03-13] MEDS: NOREPINEPHRINE 8 MG/250ML KIT 250 ML IV SCH (10:01)
[2017-03-13] MEDS: MIDAZOLAM DRIP 50 mg/50mL 50 ML IV SCH ×2 (10:01→22:00)
[2017-03-13] MEDS ORDERED: ENOXAPARIN SOD 40 MG/0.4 ML SYRINGE SC ONE (10:15)
[2017-03-13] MEDS ORDERED: cefTRIAXone 1GM/10ml IVPUSH 10 ML IV ONE (10:15)
[2017-03-13] MEDS ORDERED: MAGNESIUM SULFATE 1GM/100ML 200 ML IV ONE (10:15)
[2017-03-13] MEDS ORDERED: POTASSIUM CHL 10MEQ/100ML 300 ML IV PRN (10:15)
[2017-03-13] MEDS ORDERED: POTASSIUM CHL 20MEQ/50ML 50 ML IV PRN (10:15)
[2017-03-13] MEDS ORDERED: VANCOMYCIN PER PHARMACY 0 MG IV SCH (10:15)
[2017-03-13] MEDS ORDERED: NITROGLYCERIN 0.4 MG SL TAB SL PRN (10:15)
[2017-03-13] MEDS ORDERED: POTASSIUM CHL 20MEQ/50ML 100 ML IV PRN (10:15)
[2017-03-13] MEDS ORDERED: PANTOPRAZOLE 40 MG/10 ML VIAL IV ONE (10:15)
[2017-03-13] MEDS ORDERED: MORPHINE SULF INJ 2 MG/ML SYRINGE 1ML IV PRN (10:15)
[2017-03-13] MEDS ORDERED: ENOXAPARIN SOD 30 MG/0.3 ML SYRINGE SC ONE (10:30)
[2017-03-13] MEDS ORDERED: LEVOTHYROXINE SODIUM 100 MCG/5 ML INJ IV ONE (10:45)
[2017-03-13] MEDS ORDERED: VANCOMYCIN 750 MG in SODIUM CHL 0.9% 250 ML IV SCH (11:00)
[2017-03-13] MEDS ORDERED: SODIUM CHLORIDE 0.9% 1,000 ML IV SCH ×3 (11:38→14:01)
[2017-03-13] MEDS ORDERED: InsuLIN REG 1unit/0.01ml Soln (100units/ml) ONE (11:44)
[2017-03-13] MEDS: InsuLIN R (HUMAN) 100 UNITS in SODIUM CHL 0.9% 99 ML IV SCH ×2 (11:47→12:06)
[2017-03-13 11:54] VITALS: BP 92/46
[2017-03-13] MEDS ORDERED: InsuLIN REG 1unit/0.01ml Soln (100units/ml) IV ONE (12:00)
[2017-03-13] MEDS ORDERED: VASOPRESSIN 50 UNITS in D5W 5% 247.5 ML IV SCH (12:00)
[2017-03-13 13:37] LABS: Bilirubin, Total 0.4 mg/dL (0.2-1.0)
[2017-03-13 13:53] VITALS: BP 113/55
[2017-03-13 14:02] LABS: Albumin 2.5 g/dL (3.4-5.0); BUN/Creatinine Ratio 21.7; Calcium 7.3 mg/dL (8.5-10.1); Potassium 4.2 mmol/L (3.5-5.1)
[2017-03-13 15:36] LABS: BUN/Creatinine Ratio 20.2; Calcium 7.5 mg/dL (8.5-10.1); Potassium 3.2 mmol/L (3.5-5.1)
[2017-03-13 17:03] LABS: Base Excess -9.3 mmol/L (-2.0-2.0); Blood 02Sat 97.4 % (96-100); Blood COHb 0.3 % (0.5-1.5); Blood MetHb 0.4 % (0.0-1.5); HCO3 14.6 mmol/L (22-26.0); HHb 2.6 % (0.0-5.0); MODE VENT - A/C; O2Hb 96.7 % (94.0-97.0); PCO2 26.4 mmHg (35.0-45.0); PCO2(T) 26.4 mmHg (35.0-45.0); PO2 111.4 mmHg (80.0-100.0); PO2(T) 111.4 mmHg (80.0-100.0); Room 1022-ERT; Sample Type Arterial; pH 7.361 (7.350-7.450)
[2017-03-13] MEDS: SOD CHL 0.45% WITH 20MEQ KCL 1,000 ML IV SCH (17:30)
[2017-03-13] MEDS: PIPERACILLIN-TAZOB 2.25GM 50 ML IV SCH (17:41)
[2017-03-13 18:10] VITALS: BP 128/65
[2017-03-13] MEDS ORDERED: POTASSIUM CHL 10MEQ/100ML 100 ML IV PRN (18:15)
[2017-03-13] MEDS ORDERED: ACETAMINOPHEN 650 MG RECT SUPP PR PRN (19:30)
[2017-03-13 20:20] VITALS: BP 110/62
[2017-03-13 22:13] VITALS: BP 132/71
[2017-03-14] VITALS (91 sets, daily range): BP systolic 89–199; BP diastolic 41–105
[2017-03-14] MEDS: SOD CHL 0.45% WITH 20MEQ KCL 1,000 ML IV SCH ×4 (00:03→19:00)
[2017-03-14] MEDS: PIPERACILLIN-TAZOB 2.25GM 50 ML IV SCH (00:03)
[2017-03-14] MEDS: fentaNYL Drip 2500mCg/250mlNS 250 ML IV SCH (00:03)
[2017-03-14] MEDS: NOREPINEPHRINE 8 MG/250ML KIT 250 ML IV SCH (01:00)
[2017-03-14] MEDS: ACCU-CHEK COMFORT CURVE STRIP VI SCH ×13 (01:34→20:00)
[2017-03-14 04:14] LABS: Basophils # (auto) 0 uL; Basophils % (auto) 0.2 % (0.0-2.0); Eosinophils # (auto) 0 uL; Eosinophils % (auto) 0.1 % (0.0-7.0); Hematocrit 32.9 % (36.0-46.0); Hemoglobin 11.2 g/dL (12.2-16.2); Lymphocytes # (auto) 3.4 uL; Lymphocytes % (auto) 21.9 % (10.0-50.0); Mean Corpuscular Hemoglobin 31.4 pg (28.0-32.0); Mean Corpuscular Hgb Conc. 33.9 g/dL (32.0-36.0); Mean Corpuscular Volume 92.8 fL (80.0-100.0); Monocytes % (auto) 6.8 % (0.0-12.0); Neutrophils # (auto) 10.9 uL; Platelet Count (auto) 222 10^3/uL (140-450); Red Cell Distribution Width 12.7 % (11.8-14.3); White Blood Cell 15.4 10^3/uL (4.4-10.8)
[2017-03-14 04:53] LABS: Albumin 2.7 g/dL (3.4-5.0); Bilirubin, Total 0.4 mg/dL (0.2-1.0); Calcium 7.3 mg/dL (8.5-10.1); Magnesium 1.6 mg/dL (1.6-2.6); Phosphorus 2.7 mg/dL (2.5-4.90); Total Protein 5.1 g/dL (6.4-8.2)
[2017-03-14 04:57] LABS: Potassium 2.8 mmol/L (3.5-5.1)
[2017-03-14] MEDS: POTASSIUM CHL 20MEQ/50ML 50 ML IV SCH ×2 (05:15→07:15)
[2017-03-14] MEDS: SODIUM CHLORIDE 0.9% 1,000 ML IV SCH ×2 (05:21→08:00)
[2017-03-14] MEDS: PIPERACILLIN-TAZOB 3.375GM 50 ML IV SCH ×2 (07:00→11:48)
[2017-03-14 07:42] LABS: Allen Test No; Base Excess 0.8 mmol/L (-2.0-2.0); Blood 02Sat 97.4 % (96-100); Blood COHb 0.3 % (0.5-1.5); Blood MetHb 0.2 % (0.0-1.5); HCO3 25.5 mmol/L (22-26.0); HHb 2.6 % (0.0-5.0); MODE VENT - A/C; O2Hb 96.9 % (94.0-97.0); PIP 16; PO2 116.7 mmHg (80.0-100.0); PO2(T) 116.7 mmHg (80.0-100.0); Sample Type Arterial; pH 7.412 (7.350-7.450)
[2017-03-14] MEDS ORDERED: cefTRIAXone 1GM/10ml IVPUSH 10 ML IV SCH (09:00)
[2017-03-14] MEDS: ENOXAPARIN SOD 40 MG/0.4 ML SYRINGE SC SCH (09:41)
[2017-03-14] MEDS: PANTOPRAZOLE 40 MG/10 ML VIAL IV SCH (09:41)
[2017-03-14] MEDS ORDERED: ENOXAPARIN SOD 40 MG/0.4 ML SYRINGE SC SCH (10:00)
[2017-03-14] MEDS ORDERED: LEVOTHYROXINE SODIUM 100 MCG/5 ML INJ IV SCH (10:00)
[2017-03-14 10:49] LABS: Calcium 7.3 mg/dL (8.5-10.1); Potassium 3.2 mmol/L (3.5-5.1)
[2017-03-14] MEDS: VANCOMYCIN 750 MG in D5W 5% 250 ML IV SCH (11:20)
[2017-03-14] MEDS ORDERED: DEXTROSE (50%) 50ML SYRG IV PRN (13:15)
[2017-03-14] MEDS ORDERED: POTASSIUM CHL 10% (20 MEQ/15ML) 15ml ORAL SOLN GT ONE (13:15)
[2017-03-14] MEDS ORDERED: cefTRIAXone 1GM/10ml IVPUSH 10 ML IV ONE ×2 (13:15→13:25)
[2017-03-14] MEDS ORDERED: LEVOTHYROXINE SODIUM 25 MCG TAB PO ONE (13:30)
[2017-03-14] MEDS: INSULIN DETEMIR(LEVEMIR) 1unit/0.01ml Soln (100units/ml) SC SCH (13:57)
[2017-03-14] MEDS: MIDAZOLAM DRIP 50 mg/50mL 50 ML IV SCH ×2 (15:34→17:38)
[2017-03-14] MEDS: InsuLIN REG 1unit/0.01ml Soln (100units/ml) SC SCH ×2 (16:00→20:00)
[2017-03-14 23:43] LABS: BUN/Creatinine Ratio 16.1; Calcium 7.4 mg/dL (8.5-10.1); Potassium 3.2 mmol/L (3.5-5.1)
[2017-03-15] VITALS (86 sets, daily range): BP systolic 86–244; BP diastolic 35–241
[2017-03-15] MEDS: POTASSIUM CHL 20MEQ/50ML 50 ML IV SCH ×2 (02:00→04:00)
[2017-03-15] MEDS: SOD CHL 0.45% WITH 20MEQ KCL 1,000 ML IV SCH ×2 (02:05→09:33)
[2017-03-15] MEDS: InsuLIN REG 1unit/0.01ml Soln (100units/ml) SC SCH ×6 (04:00→20:00)
[2017-03-15] MEDS: ACCU-CHEK COMFORT CURVE STRIP VI SCH ×6 (04:00→20:00)
[2017-03-15 04:11] LABS: BUN/Creatinine Ratio 26.1; Calcium 7.5 mg/dL (8.5-10.1); Magnesium 1.5 mg/dL (1.6-2.6); Potassium 4.1 mmol/L (3.5-5.1)
[2017-03-15 04:15] LABS: Basophils # (auto) 0 uL; Basophils % (auto) 0.4 % (0.0-2.0); Eosinophils # (auto) 0 uL; Eosinophils % (auto) 0.7 % (0.0-7.0); Hematocrit 28.8 % (36.0-46.0); Hemoglobin 9.9 g/dL (12.2-16.2); Lymphocytes % (auto) 47.7 % (10.0-50.0); Mean Corpuscular Hemoglobin 32.2 pg (28.0-32.0); Mean Corpuscular Hgb Conc. 34.3 g/dL (32.0-36.0); Mean Corpuscular Volume 93.9 fL (80.0-100.0); Mean Platelet Volume 6.9 fL (6.9-10.8); Monocytes # (auto) 0.4 uL; Monocytes % (auto) 5.8 % (0.0-12.0); Neutrophils # (auto) 2.9 uL; Neutrophils % (auto) 45.4 % (37.0-80.0); Nucleated Red Blood Cells % 0.1 %; Platelet Count (auto) 125 10^3/uL (140-450); Red Cell Distribution Width 12.6 % (11.8-14.3); White Blood Cell 6.4 10^3/uL (4.4-10.8)
[2017-03-15] MEDS: LEVOTHYROXINE SODIUM 25 MCG TAB PO SCH ×2 (06:56→08:00)
[2017-03-15 08:10] LABS: Base Excess 0.5 mmol/L (-2.0-2.0); Blood 02Sat 96.7 % (96-100); Blood COHb 0.4 % (0.5-1.5); HCO3 24.3 mmol/L (22-26.0); HHb 3.3 % (0.0-5.0); MODE VENT - A/C; O2Hb 96.3 % (94.0-97.0); PCO2 35.9 mmHg (35.0-45.0); PCO2(T) 35.9 mmHg (35.0-45.0); PO2 91.9 mmHg (80.0-100.0); PO2(T) 91.9 mmHg (80.0-100.0); Sample Type Arterial; pH 7.448 (7.350-7.450)
[2017-03-15] MEDS: cefTRIAXone 1GM/10ml IVPUSH 10 ML IV SCH (08:41)
[2017-03-15] MEDS: MIDAZOLAM DRIP 50 mg/50mL 50 ML IV SCH (10:06)
[2017-03-15] MEDS: INSULIN DETEMIR(LEVEMIR) 1unit/0.01ml Soln (100units/ml) SC SCH ×2 (10:22→21:34)
[2017-03-15] MEDS: ENOXAPARIN SOD 40 MG/0.4 ML SYRINGE SC SCH (10:22)
[2017-03-15] MEDS: PANTOPRAZOLE 40 MG/10 ML VIAL IV SCH (10:22)
[2017-03-15] MEDS: VANCOMYCIN 750 MG in D5W 5% 250 ML IV SCH (11:07)
[2017-03-15 12:18] LABS: Base Excess -0.8 mmol/L (-2.0-2.0); Blood 02Sat 95.5 % (96-100); Blood COHb 0.3 % (0.5-1.5); HCO3 23.7 mmol/L (22-26.0); HHb 4.5 % (0.0-5.0); MODE VENT - CPAP; O2Hb 95.2 % (94.0-97.0); PCO2 38.6 mmHg (35.0-45.0); PCO2(T) 38.6 mmHg (35.0-45.0); PO2 83.9 mmHg (80.0-100.0); PO2(T) 83.9 mmHg (80.0-100.0); Pressure Support 8; Sample Type Arterial; Spont Vt 571; pH 7.406 (7.350-7.450)
[2017-03-15] MEDS: SODIUM CHLORIDE 0.9% 1,000 ML IV SCH (14:19)
[2017-03-16] VITALS (42 sets, daily range): BP systolic 126–195; BP diastolic 55–194
[2017-03-16] MEDS: ACCU-CHEK COMFORT CURVE STRIP VI SCH ×6 (00:21→21:50)
[2017-03-16] MEDS: SODIUM CHLORIDE 0.9% 1,000 ML IV SCH ×2 (00:21→09:36)
[2017-03-16] MEDS ORDERED: HYDROcodone-ACET 7.5/325MG TAB PO ONE (02:45)
[2017-03-16] MEDS: InsuLIN REG 1unit/0.01ml Soln (100units/ml) SC SCH ×6 (04:00→22:15)
[2017-03-16 04:26] LABS: Basophils # (auto) 0 uL; Basophils % (auto) 0.6 % (0.0-2.0); Eosinophils # (auto) 0 uL; Eosinophils % (auto) 0.5 % (0.0-7.0); Hematocrit 29.7 % (36.0-46.0); Hemoglobin 10.1 g/dL (12.2-16.2); Lymphocytes # (auto) 1.2 uL; Lymphocytes % (auto) 31.2 % (10.0-50.0); Mean Corpuscular Hemoglobin 32.3 pg (28.0-32.0); Mean Corpuscular Volume 95.1 fL (80.0-100.0); Mean Platelet Volume 7.6 fL (6.9-10.8); Monocytes # (auto) 0.2 uL; Monocytes % (auto) 5.8 % (0.0-12.0); Neutrophils # (auto) 2.4 uL; Neutrophils % (auto) 61.9 % (37.0-80.0); Platelet Count (auto) 113 10^3/uL (140-450); Red Cell Distribution Width 12.5 % (11.8-14.3); White Blood Cell 3.8 10^3/uL (4.4-10.8)
[2017-03-16 04:35] LABS: Calcium 8.2 mg/dL (8.5-10.1); Potassium 3.7 mmol/L (3.5-5.1)
[2017-03-16] MEDS: cefTRIAXone 1GM/10ml IVPUSH 10 ML IV SCH (09:48)
[2017-03-16] MEDS: PANTOPRAZOLE 40 MG/10 ML VIAL IV SCH (09:49)
[2017-03-16] MEDS: ENOXAPARIN SOD 40 MG/0.4 ML SYRINGE SC SCH (09:49)
[2017-03-16] MEDS: INSULIN DETEMIR(LEVEMIR) 1unit/0.01ml Soln (100units/ml) SC SCH ×2 (09:49→22:15)
[2017-03-16] MEDS ORDERED: FUROSEMIDE 20 MG/2 ML VIAL IV ONE (15:15)
[2017-03-16] MEDS ORDERED: DEXTROSE (50%) 50ML SYRG IV PRN (15:15)
[2017-03-16] MEDS ORDERED: POTASSIUM CHL 20 Meq TABLET PO ONE (15:15)
[2017-03-17] VITALS (8 sets, daily range): BP systolic 118–150; BP diastolic 58–89
[2017-03-17] MEDS: InsuLIN REG 1unit/0.01ml Soln (100units/ml) SC SCH ×4 (06:57→22:08)
[2017-03-17] MEDS: ACCU-CHEK COMFORT CURVE STRIP VI SCH ×4 (06:57→22:08)
[2017-03-17] MEDS: LEVOTHYROXINE SODIUM 25 MCG TAB PO SCH (07:00)
[2017-03-17] MEDS ORDERED: GABA-494 PO (08:34)
[2017-03-17] MEDS: cefTRIAXone 1GM/10ml IVPUSH 10 ML IV SCH (10:13)
[2017-03-17] MEDS: INSULIN DETEMIR(LEVEMIR) 1unit/0.01ml Soln (100units/ml) SC SCH ×2 (10:13→22:08)
[2017-03-17] MEDS: PANTOPRAZOLE 40 MG TAB PO SCH (10:13)
[2017-03-17] MEDS: traZODone HCL 50 MG TAB PO SCH (21:40)
[2017-03-17] MEDS: GABAPENTIN 100 MG CAP PO SCH (21:40)
[2017-03-18 05:00] VITALS: BP 136/75
[2017-03-18] MEDS: InsuLIN REG 1unit/0.01ml Soln (100units/ml) SC SCH ×4 (06:39→22:19)
[2017-03-18] MEDS: ACCU-CHEK COMFORT CURVE STRIP VI SCH ×4 (06:40→21:19)
[2017-03-18] MEDS: LEVOTHYROXINE SODIUM 88 MCG TAB PO SCH (06:40)
[2017-03-18 09:00] VITALS: BP 111/72
[2017-03-18] MEDS: GABAPENTIN 100 MG CAP PO SCH ×2 (10:25→21:19)
[2017-03-18] MEDS: PANTOPRAZOLE 40 MG TAB PO SCH (10:25)
[2017-03-18] MEDS: INSULIN DETEMIR(LEVEMIR) 1unit/0.01ml Soln (100units/ml) SC SCH ×2 (10:41→22:18)
[2017-03-18] MEDS: cefTRIAXone 1GM/10ml IVPUSH 10 ML IV SCH (11:25)
[2017-03-18 13:00] VITALS: BP 120/76
[2017-03-18 17:06] VITALS: BP 120/73
[2017-03-18] MEDS: traZODone HCL 50 MG TAB PO SCH (21:18)
[2017-03-18 22:00] VITALS: BP 132/91
[2017-03-19 05:30] LABS: Basophils # (auto) 0 uL; Basophils % (auto) 0.4 % (0.0-2.0); Eosinophils # (auto) 0.1 uL; Eosinophils % (auto) 1.3 % (0.0-7.0); Hematocrit 32.3 % (36.0-46.0); Hemoglobin 11.4 g/dL (12.2-16.2); Lymphocytes # (auto) 2.8 uL; Mean Corpuscular Hemoglobin 32.9 pg (28.0-32.0); Mean Corpuscular Hgb Conc. 35.2 g/dL (32.0-36.0); Mean Corpuscular Volume 93.4 fL (80.0-100.0); Mean Platelet Volume 6.8 fL (6.9-10.8); Monocytes # (auto) 0.7 uL; Neutrophils % (auto) 46.3 % (37.0-80.0); Nucleated Red Blood Cells % 0.1 %; Platelet Count (auto) 264 10^3/uL (140-450); Red Cell Distribution Width 12.5 % (11.8-14.3); White Blood Cell 6.6 10^3/uL (4.4-10.8)
[2017-03-19 05:49] LABS: Potassium 3.6 mmol/L (3.5-5.1)
[2017-03-19 05:51] LABS: INR 0.94 (0.9-1.15); Prothrombin Time 10.2 sec (9.37-12.3)
[2017-03-19 05:52] LABS: Albumin 2.5 g/dL (3.4-5.0); BUN/Creatinine Ratio 35.3; Calcium 8.9 mg/dL (8.5-10.1); Magnesium 1.8 mg/dL (1.6-2.6)
[2017-03-19 05:55] LABS: Bilirubin, Total 0.2 mg/dL (0.2-1.0); Total Protein 5.9 g/dL (6.4-8.2)
[2017-03-19 06:00] VITALS: BP 114/65
[2017-03-19] MEDS: ACCU-CHEK COMFORT CURVE STRIP VI SCH ×4 (06:12→21:53)
[2017-03-19] MEDS: LEVOTHYROXINE SODIUM 88 MCG TAB PO SCH (06:12)
[2017-03-19] MEDS: InsuLIN REG 1unit/0.01ml Soln (100units/ml) SC SCH ×4 (06:20→21:59)
[2017-03-19 08:23] VITALS: BP 122/61
[2017-03-19] MEDS: cefTRIAXone 1GM/10ml IVPUSH 10 ML IV SCH (09:45)
[2017-03-19] MEDS: GABAPENTIN 100 MG CAP PO SCH ×2 (09:46→21:52)
[2017-03-19] MEDS: INSULIN DETEMIR(LEVEMIR) 1unit/0.01ml Soln (100units/ml) SC SCH ×2 (09:46→22:00)
[2017-03-19] MEDS: PANTOPRAZOLE 40 MG TAB PO SCH (09:46)
[2017-03-19 13:00] VITALS: BP 120/57
[2017-03-19 17:50] VITALS: BP 109/62
[2017-03-19] MEDS: traZODone HCL 50 MG TAB PO SCH (21:52)
[2017-03-19 22:23] VITALS: BP 132/74
[2017-03-20 04:47] VITALS: BP 107/55
[2017-03-20] MEDS: LEVOTHYROXINE SODIUM 88 MCG TAB PO SCH (06:26)
[2017-03-20] MEDS: ACCU-CHEK COMFORT CURVE STRIP VI SCH ×4 (06:26→21:14)
[2017-03-20] MEDS: InsuLIN REG 1unit/0.01ml Soln (100units/ml) SC SCH ×3 (06:27→17:25)
[2017-03-20 09:00] VITALS: BP 111/62
[2017-03-20] MEDS: PANTOPRAZOLE 40 MG TAB PO SCH (09:41)
[2017-03-20] MEDS: GABAPENTIN 100 MG CAP PO SCH ×2 (09:41→21:14)
[2017-03-20] MEDS: INSULIN DETEMIR(LEVEMIR) 1unit/0.01ml Soln (100units/ml) SC SCH ×2 (09:41→21:27)
[2017-03-20 13:00] VITALS: BP 114/57
[2017-03-20] MEDS ORDERED: MORPHINE SULF INJ 2 MG/ML SYRINGE 1ML IV PRN (14:45)
[2017-03-20] MEDS ORDERED: DEXTROSE (50%) 50ML SYRG IV PRN (14:45)
[2017-03-20] MEDS: ALPRAZolam 0.25 MG TAB PO PRN (15:51)
[2017-03-20 17:00] VITALS: BP 128/54
[2017-03-20] MEDS: traZODone HCL 50 MG TAB PO SCH (21:14)
[2017-03-20 22:00] VITALS: BP 127/90
[2017-03-20] MEDS ORDERED: InsuLIN REG 1unit/0.01ml Soln (100units/ml) SC SCH (22:00)
[2017-03-21] MEDS: LEVOTHYROXINE SODIUM 88 MCG TAB PO SCH (06:34)
[2017-03-21] MEDS: ACCU-CHEK COMFORT CURVE STRIP VI SCH ×2 (06:34→11:40)
[2017-03-21] MEDS: ALPRAZolam 0.25 MG TAB PO PRN ×2 (06:40→16:05)
[2017-03-21] MEDS: InsuLIN REG 1unit/0.01ml Soln (100units/ml) SC SCH ×2 (06:40→12:15)
[2017-03-21 06:42] VITALS: BP_SYST 104; BP_SYST 119; BP_DIAS 54; BP_DIAS 68
[2017-03-21 09:00] VITALS: BP 119/68
[2017-03-21] MEDS: GABAPENTIN 100 MG CAP PO SCH (09:32)
[2017-03-21] MEDS: PANTOPRAZOLE 40 MG TAB PO SCH (09:32)
[2017-03-21] MEDS: INSULIN DETEMIR(LEVEMIR) 1unit/0.01ml Soln (100units/ml) SC SCH (09:34)
[2017-03-21 13:00] VITALS: BP 122/41
[2017-03-21 15:08] VITALS: BP 135/51
== END 2017-03-21 18:56 | disposition home or self-care (01) | DRG 871 ==
LOC: ER 06:36 → TELE 06:37 → ICU WEST 03-14 02:43 → TELE-WESTW 03-17 09:26 → WEST WING 03-17 16:31
PROVIDERS: ADMIT Internal Medicine; ATTEND Internal Medicine
PROC: 5A1945Z Respiratory Ventilation, 24-96 Consecutive Hours (ICD-10-PCS; principal; 2017-03-13)
PROC: 0BH17EZ Insertion of Endotracheal Airway into Trachea, Via Natural or Artificial Opening (ICD-10-PCS; 2017-03-13)
DX: A41.9 Sepsis, unspecified organism (principal); J96.00 Acute respiratory failure, unspecified whether with hypoxia or hypercapnia; N17.0 Acute kidney failure with tubular necrosis; G93.41 Metabolic encephalopathy; E11.10 Type 2 diabetes mellitus with ketoacidosis without coma; J15.211 Pneumonia due to Methicillin susceptible Staphylococcus aureus; E86.0 Dehydration; E87.2 Acidosis; E03.9 Hypothyroidism, unspecified; E78.5 Hyperlipidemia, unspecified; F15.90 Other stimulant use, unspecified, uncomplicated; F17.210 Nicotine dependence, cigarettes, uncomplicated; F41.9 Anxiety disorder, unspecified; S39.92XA Unspecified injury of lower back, initial encounter; Z79.4 Long term (current) use of insulin; Z79.899 Other long term (current) drug therapy; X58.XXXA Exposure to other specified factors, initial encounter; Y93.89 Activity, other specified; Y92.89 Other specified places as the place of occurrence of the external cause; Y99.8 Other external cause status
CPT/HCPCS: 31500; 36415; 36556; 36600; 71010; 80048; 80053; 80307; 81001; 82010; 82805; 82962; 83036; 83605; 83735; 83880; 83930; 84100; 84443; 84484; 84702; 85025; 85379; 85610; 85730; 87040; 87070; 87077; 87081; 87186; 87205; 93005; 94002; 94003; 96361; 96365; 96367; 99291; C9113; J0330; J1815; J2250; J2543; J3010; J3490; J7060

== ENCOUNTER 2017-06-25 07:34 | Inpatient (IN) | payer BC ==
[~2017-06-25] VITALS: Ht 154.9 cm; Wt 68.6 kg
[~2017-06-25 07:34] MED LIST changes: +GABA100C9 PO
[2017-06-25] MEDS ORDERED: SODIUM CHLORIDE 0.9% 1,000 ML IV ONE ×3 (07:49→08:19)
[2017-06-25 08:21] LABS: Eosinophils # (auto) 0 uL; Eosinophils % (auto) 0.2 % (0.0-7.0); Hemoglobin 13.5 g/dL (12.2-16.2); Lymphocytes # (auto) 2.3 uL; Monocytes # (auto) 0.3 uL; White Blood Cell 8.3 10^3/uL (4.4-10.8)
[2017-06-25 08:22] LABS: Basophils # (auto) 0 uL; Basophils % (auto) 0.6 % (0.0-2.0); Hematocrit 43.8 % (36.0-46.0); Lymphocytes % (auto) 27.9 % (10.0-50.0); Mean Corpuscular Hemoglobin 31.4 pg (28.0-32.0); Mean Corpuscular Hgb Conc. 30.8 g/dL (32.0-36.0); Mean Corpuscular Volume 101.9 fL (80.0-100.0); Monocytes % (auto) 3.7 % (0.0-12.0); Neutrophils # (auto) 5.6 uL; Neutrophils % (auto) 67.6 % (37.0-80.0); Nucleated Red Blood Cells % 0.1 %; Platelet Count (auto) 382 10^3/uL (140-450); Red Cell Distribution Width 15.8 % (11.8-14.3)
[2017-06-25] MEDS ORDERED: InsuLIN REG 1unit/0.01ml Soln (100units/ml) SC ONE (08:30)
[2017-06-25] MEDS ORDERED: ONDANSETRON HCL 4 MG/2 ML VIAL IV ONE (08:30)
[2017-06-25 09:22] LABS: Potassium 3.4 mmol/L (3.5-5.1)
[2017-06-25 09:22] LABS: Urine Bacteria FEW /hpf (None Seen); Urine Blood Negative /uL (Negative); Urine Mucus FEW (None Seen); Urine Specific Gravity 1.017 (1.001-1.035); Urine WBC 2 /hpf (0 - 5)
[2017-06-25 09:23] LABS: Bilirubin, Total 0.6 mg/dL (0.2-1.0); Calcium 8.2 mg/dL (8.5-10.1); Total Protein 7.5 g/dL (6.4-8.2)
[2017-06-25 09:24] LABS: Albumin 3.6 g/dL (3.4-5.0)
[2017-06-25] MEDS ORDERED: InsuLIN R (HUMAN) 100 UNITS in SODIUM CHL 0.9% 99 ML IV SCH (10:31)
[2017-06-25] MEDS ORDERED: DEXTROSE (50%) 50ML SYRG IV PRN ×2 (10:45→12:30)
[2017-06-25] MEDS: SODIUM CHLORIDE 0.9% 1,000 ML IV SCH ×4 (11:06→23:11)
[2017-06-25 11:21] LABS: Basophils # (auto) 0 uL; Basophils % (auto) 0.5 % (0.0-2.0); Eosinophils # (auto) 0 uL; Hemoglobin 12.7 g/dL (12.2-16.2); Lymphocytes # (auto) 0.6 uL; Lymphocytes % (auto) 7.6 % (10.0-50.0); Mean Corpuscular Hemoglobin 31.3 pg (28.0-32.0); Mean Corpuscular Hgb Conc. 31.8 g/dL (32.0-36.0); Mean Corpuscular Volume 98.6 fL (80.0-100.0); Monocytes # (auto) 0.3 uL; Monocytes % (auto) 3.8 % (0.0-12.0); Neutrophils # (auto) 6.6 uL; Neutrophils % (auto) 88.1 % (37.0-80.0); Platelet Count (auto) 302 10^3/uL (140-450); Red Blood Cells 4.06 10^6/uL (4.0-5.20); Red Cell Distribution Width 15.2 % (11.8-14.3); White Blood Cell 7.5 10^3/uL (4.4-10.8)
[2017-06-25 11:33] LABS: BUN/Creatinine Ratio 14.5; Calcium 7.3 mg/dL (8.5-10.1); Phosphorus 2.7 mg/dL (2.5-4.90); Potassium 3.5 mmol/L (3.5-5.1)
[2017-06-25] MEDS ORDERED: ACCU-CHEK COMFORT CURVE STRIP VI SCH (12:00)
[2017-06-25] MEDS ORDERED: ONDANSETRON HCL 4 MG/2 ML VIAL IV PRN (12:30)
[2017-06-25] MEDS ORDERED: NITROGLYCERIN 0.4 MG SL TAB SL PRN (12:30)
[2017-06-25] MEDS ORDERED: MORPHINE SULFATE 4 MG/ML SYR/VIAL IV PRN ×2 (12:30)
[2017-06-25] MEDS ORDERED: MULTIPLE VITAMIN TAB PO ONE (12:30)
[2017-06-25] MEDS ORDERED: HYDROcodone-ACET 5/325MG TAB PO PRN (12:30)
[2017-06-25] MEDS ORDERED: FOLIC ACID 1 MG TAB PO ONE (12:30)
[2017-06-25] MEDS: InsuLIN R (HUMAN) 100 UNITS in SODIUM CHL 0.9% 99 ML IV SCH (12:44)
[2017-06-25] MEDS ORDERED: THIAMINE HCL 100 MG TAB PO ONE (12:45)
[2017-06-25] MEDS ORDERED: PANTOPRAZOLE 40 MG/10 ML VIAL IV ONE (13:00)
[2017-06-25] MEDS: LACTATED RINGER'S 1,000 ML IV SCH ×2 (13:12→19:35)
[2017-06-25] MEDS: ACCU-CHEK COMFORT CURVE STRIP VI SCH ×7 (13:43→22:31)
[2017-06-25] MEDS ORDERED: SODIUM CHLORIDE 0.9% 1,000 ML IV SCH (14:31)
[2017-06-25 14:56] LABS: Alcohol, Urine < 3.0 mg/dL (0-5); Amphetamine Screen, Urine NEGATIVE (NEGATIVE); Barbiturate Scree,Urine NEGATIVE (NEGATIVE); Benzodiazephine Screen, Urine NEGATIVE (NEGATIVE); Cannabinoid Screen, Urine NEGATIVE (NEGATIVE); Cocaine Screen, Urine NEGATIVE (NEGATIVE); Opiate Scree,Urine NEGATIVE (NEGATIVE); Phencyclidine Screen, Urine NEGATIVE (NEGATIVE)
[2017-06-25] MEDS: LORazepam 2MG/ML-1ML VIAL IV PRN (16:29)
[2017-06-25] MEDS: ALBUTEROL SULF 2.5 MG/0.5ML(0.5%) NEB SOLN NEB SCH (18:40)
[2017-06-25] MEDS: IPRATROPIUM BROM 0.5 MG/2.5ML INH SOL NEB SCH (18:40)
[2017-06-25 19:01] LABS: BUN/Creatinine Ratio 11.3; Calcium 7.4 mg/dL (8.5-10.1); Magnesium 1.7 mg/dL (1.6-2.6); Phosphorus 2.4 mg/dL (2.5-4.90); Potassium 3.4 mmol/L (3.5-5.1)
[2017-06-26] MEDS: ACCU-CHEK COMFORT CURVE STRIP VI SCH ×16 (00:11→22:54)
[2017-06-26] MEDS: IPRATROPIUM BROM 0.5 MG/2.5ML INH SOL NEB SCH ×4 (00:26→19:05)
[2017-06-26] MEDS: ALBUTEROL SULF 2.5 MG/0.5ML(0.5%) NEB SOLN NEB SCH ×4 (00:27→19:05)
[2017-06-26] MEDS: LACTATED RINGER'S 1,000 ML IV SCH ×4 (01:54→22:14)
[2017-06-26] MEDS: LORazepam 2MG/ML-1ML VIAL IV PRN ×2 (01:54→16:23)
[2017-06-26 05:37] LABS: Basophils # (auto) 0 uL; Basophils % (auto) 0.8 % (0.0-2.0); Eosinophils # (auto) 0 uL; Eosinophils % (auto) 0.2 % (0.0-7.0); Hematocrit 30.8 % (36.0-46.0); Hemoglobin 10.7 g/dL (12.2-16.2); Lymphocytes # (auto) 1.9 uL; Lymphocytes % (auto) 42.5 % (10.0-50.0); Mean Corpuscular Hemoglobin 32.2 pg (28.0-32.0); Mean Corpuscular Hgb Conc. 34.6 g/dL (32.0-36.0); Monocytes # (auto) 0.4 uL; Monocytes % (auto) 9.1 % (0.0-12.0); Neutrophils # (auto) 2.1 uL; Neutrophils % (auto) 47.4 % (37.0-80.0); Nucleated Red Blood Cells % 0.1 %; Platelet Count (auto) 218 10^3/uL (140-450); Red Blood Cells 3.31 10^6/uL (4.0-5.20); Red Cell Distribution Width 14.5 % (11.8-14.3); White Blood Cell 4.4 10^3/uL (4.4-10.8)
[2017-06-26 05:41] LABS: Albumin 2.7 g/dL (3.4-5.0); BUN/Creatinine Ratio 7.8; Calcium 8.1 mg/dL (8.5-10.1); Magnesium 1.3 mg/dL (1.6-2.6)
[2017-06-26 05:44] LABS: Bilirubin, Total 0.5 mg/dL (0.2-1.0); Phosphorus 1.6 mg/dL (2.5-4.90); Total Protein 5.5 g/dL (6.4-8.2)
[2017-06-26 05:45] LABS: Potassium 2.1 mmol/L (3.5-5.1)
[2017-06-26] MEDS: SODIUM CHLORIDE 0.9% 1,000 ML IV SCH ×3 (05:51→20:21)
[2017-06-26] MEDS: POTASSIUM CHL 20MEQ/100ML 100 ML IV SCH ×3 (06:20→10:20)
[2017-06-26] MEDS: LEVOTHYROXINE SODIUM 88 MCG TAB PO SCH (07:03)
[2017-06-26] MEDS: THIAMINE HCL 100 MG TAB PO SCH (10:10)
[2017-06-26] MEDS: MULTIPLE VITAMIN TAB PO SCH (10:10)
[2017-06-26] MEDS: FOLIC ACID 1 MG TAB PO SCH (10:10)
[2017-06-26] MEDS: PANTOPRAZOLE 40 MG/10 ML VIAL IV SCH (10:10)
[2017-06-26] MEDS ORDERED: INSULIN LANTUS (GLARGINE) 1 /0.01ml (100units/ml) SC ONE (12:30)
[2017-06-26] MEDS: InsuLIN R (HUMAN) 100 UNITS in SODIUM CHL 0.9% 99 ML IV SCH (12:38)
[2017-06-26] MEDS: MAGNESIUM SULFATE 1GM/100ML 100 ML IV SCH ×2 (13:43→14:38)
[2017-06-26 15:41] LABS: BUN/Creatinine Ratio 5.3; Calcium 7.8 mg/dL (8.5-10.1); Magnesium 2.2 mg/dL (1.6-2.6); Potassium 3.3 mmol/L (3.5-5.1)
[2017-06-26] MEDS: INSULIN LANTUS (GLARGINE) 1 /0.01ml (100units/ml) SC SCH (22:00)
[2017-06-27] MEDS: IPRATROPIUM BROM 0.5 MG/2.5ML INH SOL NEB SCH ×4 (00:45→18:00)
[2017-06-27] MEDS: ALBUTEROL SULF 2.5 MG/0.5ML(0.5%) NEB SOLN NEB SCH ×4 (00:45→18:00)
[2017-06-27] MEDS: LORazepam 2MG/ML-1ML VIAL IV PRN ×3 (01:31→21:11)
[2017-06-27] MEDS: ACCU-CHEK COMFORT CURVE STRIP VI SCH ×7 (01:34→20:20)
[2017-06-27 01:37] LABS: Hematocrit 27.9 % (36.0-46.0); Hemoglobin 9.6 g/dL (12.2-16.2); Mean Corpuscular Hemoglobin 31.6 pg (28.0-32.0); Mean Corpuscular Hgb Conc. 34.2 g/dL (32.0-36.0); Mean Corpuscular Volume 92.5 fL (80.0-100.0); Red Blood Cells 3.02 10^6/uL (4.0-5.20); Red Cell Distribution Width 14.9 % (11.8-14.3); White Blood Cell 3.1 10^3/uL (4.4-10.8)
[2017-06-27 01:40] LABS: Platelet Count (auto) 179 10^3/uL (140-450)
[2017-06-27 01:42] LABS: Band Neutrophils % (manual) 0; Basophils % (manual) 0 (0.0-2.0); Blast Cells 0; Eosinophils % (manual) 0 (0-7); Metamyelocytes % 0; Myelocytes % 0; Promyelocytes % 0
[2017-06-27] MEDS: SODIUM CHLORIDE 0.9% 1,000 ML IV SCH ×2 (01:51→08:52)
[2017-06-27 01:53] LABS: Albumin 2.5 g/dL (3.4-5.0); BUN/Creatinine Ratio 10.7; Calcium 7.9 mg/dL (8.5-10.1)
[2017-06-27 01:55] LABS: Bilirubin, Total 0.3 mg/dL (0.2-1.0); Total Protein 5.2 g/dL (6.4-8.2)
[2017-06-27 02:22] LABS: Potassium 2.6 mmol/L (3.5-5.1)
[2017-06-27] MEDS ORDERED: DEXTROSE (50%) 50ML SYRG IV PRN (02:45)
[2017-06-27] MEDS: POTASSIUM CHL 20MEQ/100ML 100 ML IV SCH ×3 (02:51→07:20)
[2017-06-27 03:09] LABS: Lymphocytes % (manual) 48 (10.0-50.0); Monocytes % (manual) 6 (0-12); Reactive Lymphocytes 4
[2017-06-27] MEDS: InsuLIN REG 1unit/0.01ml Soln (100units/ml) SC SCH ×5 (04:00→20:19)
[2017-06-27] MEDS: LACTATED RINGER'S 1,000 ML IV SCH ×2 (04:38→11:16)
[2017-06-27] MEDS ORDERED: MORPHINE SULFATE 4 MG/ML SYR/VIAL IV PRN (04:45)
[2017-06-27] MEDS ORDERED: NITROGLYCERIN 0.4 MG SL TAB SL PRN (04:45)
[2017-06-27 05:29] LABS: Hematocrit 29.5 % (36.0-46.0); Hemoglobin 10.3 g/dL (12.2-16.2); Mean Corpuscular Hemoglobin 32.2 pg (28.0-32.0); Mean Corpuscular Hgb Conc. 35.1 g/dL (32.0-36.0); Mean Corpuscular Volume 91.8 fL (80.0-100.0); Platelet Count (auto) 187 10^3/uL (140-450); Red Blood Cells 3.21 10^6/uL (4.0-5.20); Red Cell Distribution Width 14.8 % (11.8-14.3); White Blood Cell 3.5 10^3/uL (4.4-10.8)
[2017-06-27 05:34] LABS: Band Neutrophils % (manual) 0; Basophils % (manual) 0 (0.0-2.0); Blast Cells 0; Metamyelocytes % 0; Myelocytes % 0; Promyelocytes % 0; Reactive Lymphocytes 0
[2017-06-27 05:45] LABS: BUN/Creatinine Ratio 14.9
[2017-06-27 05:46] LABS: Albumin 2.7 g/dL (3.4-5.0); Bilirubin, Total 0.4 mg/dL (0.2-1.0); Calcium 7.8 mg/dL (8.5-10.1); Total Protein 5.7 g/dL (6.4-8.2)
[2017-06-27 06:06] LABS: Potassium 2.7 mmol/L (3.5-5.1)
[2017-06-27 06:36] LABS: Eosinophils % (manual) 1 (0-7); Lymphocytes % (manual) 59 (10.0-50.0); Monocytes % (manual) 4 (0-12)
[2017-06-27] MEDS: LEVOTHYROXINE SODIUM 88 MCG TAB PO SCH (07:13)
[2017-06-27] MEDS: FOLIC ACID 1 MG TAB PO SCH (10:41)
[2017-06-27] MEDS: MULTIPLE VITAMIN TAB PO SCH (10:41)
[2017-06-27] MEDS: THIAMINE HCL 100 MG TAB PO SCH (10:41)
[2017-06-27] MEDS: PANTOPRAZOLE 40 MG/10 ML VIAL IV SCH (10:41)
[2017-06-27] MEDS ORDERED: POTASSIUM CHL 20 Meq TABLET PO ONE (15:15)
[2017-06-27 18:46] VITALS: BP 135/74
[2017-06-27] MEDS: INSULIN LANTUS (GLARGINE) 1 /0.01ml (100units/ml) SC SCH (21:12)
[2017-06-27 22:00] VITALS: BP 83/47
[2017-06-27 22:30] VITALS: BP 121/89
[2017-06-28] MEDS: ACCU-CHEK COMFORT CURVE STRIP VI SCH ×5 (00:18→16:00)
[2017-06-28] MEDS: LACTATED RINGER'S 1,000 ML IV SCH ×2 (00:18→02:48)
[2017-06-28] MEDS: ALBUTEROL SULF 2.5 MG/0.5ML(0.5%) NEB SOLN NEB SCH ×4 (00:45→18:00)
[2017-06-28] MEDS: IPRATROPIUM BROM 0.5 MG/2.5ML INH SOL NEB SCH ×4 (00:45→18:00)
[2017-06-28] MEDS: InsuLIN REG 1unit/0.01ml Soln (100units/ml) SC SCH ×5 (04:00→16:00)
[2017-06-28 04:44] VITALS: BP 119/94
[2017-06-28 05:30] VITALS: BP 119/94
[2017-06-28] MEDS: LEVOTHYROXINE SODIUM 88 MCG TAB PO SCH (06:03)
[2017-06-28 06:05] LABS: BUN/Creatinine Ratio 17.1; Calcium 8.3 mg/dL (8.5-10.1); Magnesium 1.7 mg/dL (1.6-2.6); Potassium 3.7 mmol/L (3.5-5.1)
[2017-06-28 08:00] VITALS: BP 135/89
[2017-06-28] MEDS: LORazepam 2MG/ML-1ML VIAL IV PRN ×2 (08:12→15:44)
[2017-06-28 09:00] VITALS: BP 135/89
[2017-06-28] MEDS ORDERED: PANTOPRAZOLE 40 MG TAB PO SCH (10:00)
[2017-06-28] MEDS: FOLIC ACID 1 MG TAB PO SCH (10:15)
[2017-06-28] MEDS: MULTIPLE VITAMIN TAB PO SCH (10:16)
[2017-06-28] MEDS: THIAMINE HCL 100 MG TAB PO SCH (10:16)
[2017-06-28 13:00] VITALS: BP 139/86
[2017-06-28 14:09] VITALS: BP 130/85
[2017-06-28] MEDS ORDERED: INFLUENZA QUAD 2017-2018 0.5 ML SYRG IM ONE (15:30)
== END 2017-06-28 16:20 | disposition home or self-care (01) | DRG 638 ==
LOC: ER 07:34 → TELE 07:35 → TELE-WESTW 06-27 18:46 → WEST WING 06-27 18:46
PROVIDERS: ADMIT Internal Medicine; ATTEND Internal Medicine
PROC: 3E0234Z Introduction of Serum, Toxoid and Vaccine into Muscle, Percutaneous Approach (ICD-10-PCS; principal; 2017-06-28)
DX: E10.10 Type 1 diabetes mellitus with ketoacidosis without coma (principal); N39.0 Urinary tract infection, site not specified; E44.0 Moderate protein-calorie malnutrition; E11.10 Type 2 diabetes mellitus with ketoacidosis without coma; E03.9 Hypothyroidism, unspecified; E78.5 Hyperlipidemia, unspecified; E86.0 Dehydration; F17.210 Nicotine dependence, cigarettes, uncomplicated; F41.9 Anxiety disorder, unspecified; E87.6 Hypokalemia; R79.89 Other specified abnormal findings of blood chemistry; I10 Essential (primary) hypertension; J44.9 Chronic obstructive pulmonary disease, unspecified; Z79.4 Long term (current) use of insulin; Z79.899 Other long term (current) drug therapy; Z68.28 Body mass index [BMI] 28.0-28.9, adult; Z91.013 Allergy to seafood; Z90.49 Acquired absence of other specified parts of digestive tract; Z83.3 Family history of diabetes mellitus; Z23 Encounter for immunization
CPT/HCPCS: 36415; 36600; 71045; 80048; 80053; 80307; 81001; 82010; 82805; 82962; 83036; 83735; 83930; 84100; 84443; 85007; 85025; 85027; 94640; 96361; 96365; 96372; 96375; C9113; J1815; J2405; J3480

== ENCOUNTER 2017-07-04 12:33 | Inpatient (IN) | payer BC ==
[~2017-07-04] VITALS: Ht 152.4 cm; Wt 65.2 kg
[2017-07-04] MEDS ORDERED: SODIUM CHLORIDE 0.9% 1,000 ML IVB ONE (13:23)
[2017-07-04 14:17] LABS: Hemoglobin 12.5 g/dL (12.2-16.2); Mean Corpuscular Hemoglobin 32.6 pg (28.0-32.0); White Blood Cell 14.9 10^3/uL (4.4-10.8)
[2017-07-04 14:19] LABS: Hematocrit 43.5 % (36.0-46.0); Mean Corpuscular Hgb Conc. 28.8 g/dL (32.0-36.0); Mean Corpuscular Volume 113.3 fL (80.0-100.0); Platelet Count (auto) 547 10^3/uL (140-450); Red Blood Cells 3.84 10^6/uL (4.0-5.20)
[2017-07-04 14:22] LABS: Basophils % (manual) 0 (0.0-2.0); Eosinophils % (manual) 0 (0-7); Myelocytes % 0; Promyelocytes % 0; Reactive Lymphocytes 0
[2017-07-04 14:23] LABS: Blast Cells 0
[2017-07-04 14:34] LABS: INR 0.95 (0.9-1.15); Partial Thromboplastin Time 27.4 sec (22.64-33.71); Prothrombin Time 10.3 sec (9.37-12.3)
[2017-07-04 14:39] LABS: Albumin 3.6 g/dL (3.4-5.0); BUN/Creatinine Ratio 19.2; Bilirubin, Total 0.5 mg/dL (0.2-1.0); Calcium 8.1 mg/dL (8.5-10.1); Potassium 4.9 mmol/L (3.5-5.1); Total Protein 7.5 g/dL (6.4-8.2)
[2017-07-04 14:43] LABS: Band Neutrophils % (manual) 6; Lymphocytes % (manual) 28 (10.0-50.0); Metamyelocytes % 2; Monocytes % (manual) 7 (0-12)
[2017-07-04] MEDS ORDERED: InsuLIN R (HUMAN) 100 UNITS in SODIUM CHL 0.9% 99 ML IV SCH ×5 (14:56→16:11)
[2017-07-04] MEDS ORDERED: ACCU-CHEK COMFORT CURVE STRIP VI SCH (15:00)
[2017-07-04] MEDS ORDERED: DEXTROSE (50%) 50ML SYRG IV PRN ×4 (15:00→18:45)
[2017-07-04 15:09] LABS: Urine Bacteria FEW /hpf (None Seen); Urine Blood Negative /uL (Negative); Urine Mucus FEW (None Seen); Urine Specific Gravity 1.015 (1.001-1.035); Urine WBC <1 /hpf (0 - 5)
[2017-07-04 15:21] LABS: Alcohol, Urine < 3.0 mg/dL (0-5); Amphetamine Screen, Urine NEGATIVE (NEGATIVE); Barbiturate Scree,Urine NEGATIVE (NEGATIVE); Benzodiazephine Screen, Urine NEGATIVE (NEGATIVE); Cannabinoid Screen, Urine NEGATIVE (NEGATIVE); Cocaine Screen, Urine NEGATIVE (NEGATIVE); Opiate Scree,Urine NEGATIVE (NEGATIVE); Phencyclidine Screen, Urine NEGATIVE (NEGATIVE)
[2017-07-04] MEDS: ACCU-CHEK COMFORT CURVE STRIP VI SCH ×8 (15:24→22:38)
[2017-07-04] MEDS: SODIUM CHLORIDE 0.9% 1,000 ML IV SCH ×4 (15:24→18:37)
[2017-07-04] MEDS ORDERED: SODIUM BICARBONATE 8.4 % INJ 50ML VIAL IV ONE ×4 (15:30→21:15)
[2017-07-04] MEDS ORDERED: ACETAMINOPHEN 500 MG TAB PO PRN (16:15)
[2017-07-04] MEDS ORDERED: PROMETHAZINE HCL 25 MG/ML 1ML IV PRN (16:15)
[2017-07-04] MEDS ORDERED: MORPHINE SULFATE 4 MG/ML SYR/VIAL IV PRN ×2 (16:15)
[2017-07-04] MEDS ORDERED: TEMAZEPAM 15 MG CAP PO PRN (16:15)
[2017-07-04] MEDS ORDERED: HYDROcodone-ACET 5/325MG TAB PO PRN (16:15)
[2017-07-04] MEDS ORDERED: NITROGLYCERIN 0.4 MG SL TAB SL PRN (16:15)
[2017-07-04] MEDS ORDERED: LORazepam 0.5 MG TAB PO PRN (16:15)
[2017-07-04 17:42] LABS: Potassium 4.4 mmol/L (3.5-5.1)
[2017-07-04] MEDS ORDERED: InsuLIN REG 1unit/0.01ml Soln (100units/ml) IV ONE (18:45)
[2017-07-04] MEDS ORDERED: SODIUM CHLORIDE 0.9% 1,000 ML IV SCH ×4 (18:56→22:11)
[2017-07-04] MEDS: InsuLIN R (HUMAN) 100 UNITS in SODIUM CHL 0.9% 99 ML IV SCH (19:03)
[2017-07-04] MEDS ORDERED: SUCCINYLCHOLINE CHLORIDE 20 MG/ML 10ML VIAL IV ONE ×2 (20:12→20:15)
[2017-07-04] MEDS ORDERED: ETOMIDATE (2MG/ML) 20ML VIAL IV ONE (20:15)
[2017-07-04] MEDS ORDERED: SODIUM CHLORIDE 0.9% 1,000 ML IV ONE (20:15)
[2017-07-04] MEDS ORDERED: PROPOFOL 100 ML IV ONE (20:25)
[2017-07-04] MEDS: PROPOFOL 100 ML IV SCH (20:30)
[2017-07-04] MEDS ORDERED: LORazepam 2MG/ML-1ML VIAL ONE (21:03)
[2017-07-04] MEDS ORDERED: SOD CHL 0.45% 1,000 ML IV ONE (21:15)
[2017-07-04] MEDS ORDERED: LORazepam 2MG/ML-1ML VIAL IV ONE (21:15)
[2017-07-04] MEDS ORDERED: fentaNYL Drip 2500mCg/250mlNS 250 ML IV SCH (21:16)
[2017-07-04] MEDS ORDERED: SODIUM BICARBONATE 8.4% INJ 50ML SYRINGE ONE (21:19)
[2017-07-04] MEDS ORDERED: fentaNYL Drip 2500mCg/250mlNS 250 ML IV ONE (21:38)
[2017-07-04] MEDS ORDERED: PRAVASTATIN SODIUM 20 MG TAB PO SCH (22:00)
[2017-07-04 22:25] VITALS: BP 137/73
[2017-07-04 22:39] LABS: BUN/Creatinine Ratio 19.2; Calcium 7.2 mg/dL (8.5-10.1); Potassium 3.7 mmol/L (3.5-5.1)
[2017-07-04] MEDS: traZODone HCL 50 MG TAB PO SCH (22:41)
[2017-07-04 22:43] LABS: Lactic Acid w/Reflex 3.4 mmol/L (0.4-2.0)
[2017-07-04] MEDS: OXcarbazepine 300 MG TAB PO SCH (22:45)
[2017-07-04 22:53] LABS: Bilirubin, Total 0.7 mg/dL (0.2-1.0); Total Protein 6.5 g/dL (6.4-8.2)
[2017-07-05] VITALS (83 sets, daily range): BP systolic 74–131; BP diastolic 33–65
[2017-07-05] MEDS ORDERED: SODIUM CHLORIDE 0.9% 1,000 ML IV ONE
[2017-07-05] MEDS ORDERED: LEVOFLOXACIN 500MG 100 ML IV ONE
[2017-07-05] MEDS ORDERED: SODIUM BICARBONATE 8.4 % INJ 50ML VIAL IV ONE (00:30)
[2017-07-05] MEDS: ACCU-CHEK COMFORT CURVE STRIP VI SCH ×16 (00:57→22:39)
[2017-07-05] MEDS: MIDAZOLAM DRIP 50 mg/50mL 50 ML IV SCH ×3 (01:13→13:13)
[2017-07-05 01:16] LABS: BUN/Creatinine Ratio 14.8; Calcium 7.6 mg/dL (8.5-10.1)
[2017-07-05 01:32] LABS: Potassium 2.5 mmol/L (3.5-5.1)
[2017-07-05] MEDS: POTASSIUM CHL 20MEQ/100ML 100 ML IV SCH ×2 (02:21→03:57)
[2017-07-05] MEDS ORDERED: SOD CHL 0.45% 1,000 ML IV SCH (07:00)
[2017-07-05] MEDS: InsuLIN R (HUMAN) 100 UNITS in SODIUM CHL 0.9% 99 ML IV SCH ×2 (07:03→10:58)
[2017-07-05] MEDS: LEVOTHYROXINE SODIUM 88 MCG TAB PO SCH (07:39)
[2017-07-05] MEDS: PROPOFOL 100 ML IV SCH ×2 (08:34→13:14)
[2017-07-05] MEDS: OXcarbazepine 300 MG TAB PO SCH (09:09)
[2017-07-05] MEDS: PANTOPRAZOLE 40 MG TAB PO SCH (09:09)
[2017-07-05 09:10] LABS: Hematocrit 31.1 % (36.0-46.0); Hemoglobin 10.2 g/dL (12.2-16.2); Mean Corpuscular Hemoglobin 31.7 pg (28.0-32.0); Mean Corpuscular Hgb Conc. 32.7 g/dL (32.0-36.0); Mean Corpuscular Volume 97.1 fL (80.0-100.0); Platelet Count (auto) 292 10^3/uL (140-450); Red Cell Distribution Width 15.6 % (11.8-14.3); White Blood Cell 8.2 10^3/uL (4.4-10.8)
[2017-07-05 09:15] LABS: Albumin 2.5 g/dL (3.4-5.0); BUN/Creatinine Ratio 16.1; Bilirubin, Total 0.3 mg/dL (0.2-1.0); Total Protein 5.4 g/dL (6.4-8.2)
[2017-07-05 09:25] LABS: Potassium 2.8 mmol/L (3.5-5.1)
[2017-07-05] MEDS ORDERED: POTASSIUM CHL 10% (20 MEQ/15ML) 15ml ORAL SOLN GT ONE (09:30)
[2017-07-05] MEDS ORDERED: D5W/SOD CHL 0.45% 1,000 ML IV SCH (09:30)
[2017-07-05 09:42] LABS: Band Neutrophils % (manual) 0; Basophils % (manual) 0 (0.0-2.0); Blast Cells 0; Eosinophils % (manual) 0 (0-7); Metamyelocytes % 0; Myelocytes % 0; Promyelocytes % 0; Reactive Lymphocytes 0
[2017-07-05 09:53] LABS: Lymphocytes % (manual) 11 (10.0-50.0); Monocytes % (manual) 6 (0-12)
[2017-07-05] MEDS ORDERED: GABAPENTIN 100 MG CAP PO SCH (10:00)
[2017-07-05] MEDS ORDERED: LISINOPRIL 10 MG TAB PO SCH (10:00)
[2017-07-05] MEDS: NOREPINEPHRINE 8 MG/250ML KIT 250 ML IV SCH ×2 (10:43→22:25)
[2017-07-05] MEDS: FREE WATER GT SCH ×2 (12:07→17:34)
[2017-07-05] MEDS ORDERED: CALCIUM GLUC 4.65meq/50ml D5AE 50 ML IV ONE ×2 (12:30)
[2017-07-05] MEDS: D5W/SOD CHL 0.45%/KCL 20MEQ 1,000 ML IV SCH ×3 (13:12→23:35)
[2017-07-05 13:20] LABS: BUN/Creatinine Ratio 14.2; Calcium 7.3 mg/dL (8.5-10.1); Potassium 4.4 mmol/L (3.5-5.1)
[2017-07-05] MEDS: MAGNESIUM SULFATE 1GM/100ML 100 ML IV SCH ×2 (14:55→15:50)
[2017-07-05] MEDS: traZODone HCL 50 MG TAB PO SCH (22:00)
[2017-07-05] MEDS: LEVOFLOXACIN 500MG 100 ML IV SCH (22:23)
[2017-07-06] VITALS (100 sets, daily range): BP systolic 89–147; BP diastolic 46–101
[2017-07-06] MEDS: ACCU-CHEK COMFORT CURVE STRIP VI SCH ×15 (00:03→19:53)
[2017-07-06] MEDS: FREE WATER GT SCH ×4 (00:03→15:41)
[2017-07-06 03:43] LABS: Basophils # (auto) 0.3 uL; Basophils % (auto) 2.8 % (0.0-2.0); Eosinophils # (auto) 0 uL; Hematocrit 30.6 % (36.0-46.0); Hemoglobin 10.2 g/dL (12.2-16.2); Lymphocytes # (auto) 3.3 uL; Mean Corpuscular Hemoglobin 32.4 pg (28.0-32.0); Mean Corpuscular Hgb Conc. 33.4 g/dL (32.0-36.0); Mean Corpuscular Volume 96.9 fL (80.0-100.0); Monocytes # (auto) 1.2 uL; Monocytes % (auto) 11.1 % (0.0-12.0); Neutrophils # (auto) 6.1 uL; Neutrophils % (auto) 56.1 % (37.0-80.0); Platelet Count (auto) 309 10^3/uL (140-450); Red Blood Cells 3.16 10^6/uL (4.0-5.20); Red Cell Distribution Width 16.1 % (11.8-14.3); White Blood Cell 10.9 10^3/uL (4.4-10.8)
[2017-07-06 04:03] LABS: Albumin 2.5 g/dL (3.4-5.0); BUN/Creatinine Ratio 10.9; Calcium 7.8 mg/dL (8.5-10.1); Potassium 4.8 mmol/L (3.5-5.1)
[2017-07-06 04:05] LABS: Bilirubin, Total 0.5 mg/dL (0.2-1.0)
[2017-07-06] MEDS: LEVOTHYROXINE SODIUM 88 MCG TAB PO SCH (05:57)
[2017-07-06] MEDS: PANTOPRAZOLE 40 MG TAB PO SCH (10:00)
[2017-07-06] MEDS: D5W/SOD CHL 0.45%/KCL 20MEQ 1,000 ML IV SCH (13:58)
[2017-07-06] MEDS ORDERED: INSULIN LANTUS (GLARGINE) 1 /0.01ml (100units/ml) SC ONE (14:15)
[2017-07-06] MEDS ORDERED: DEXTROSE (50%) 50ML SYRG IV PRN (14:15)
[2017-07-06] MEDS: D5W 5% 1,000 ML IV SCH (14:15)
[2017-07-06] MEDS ORDERED: CLINDAMYCIN 600MG IV 50 ML IV ONE (14:30)
[2017-07-06] MEDS: InsuLIN REG 1unit/0.01ml Soln (100units/ml) SC SCH ×2 (15:41→19:53)
[2017-07-06] MEDS: InsuLIN R (HUMAN) 100 UNITS in SODIUM CHL 0.9% 99 ML IV SCH (17:44)
[2017-07-06] MEDS: LEVOFLOXACIN 500MG 100 ML IV SCH (21:56)
[2017-07-06] MEDS: CLINDAMYCIN 600MG IV 50 ML IV SCH (21:56)
[2017-07-06] MEDS: INSULIN LANTUS (GLARGINE) 1 /0.01ml (100units/ml) SC SCH (22:00)
[2017-07-06] MEDS: PROPOFOL 100 ML IV SCH (22:10)
[2017-07-07] VITALS (71 sets, daily range): BP systolic 95–150; BP diastolic 57–104
[2017-07-07] MEDS: FREE WATER GT SCH ×4 (00:02→18:00)
[2017-07-07] MEDS: ACCU-CHEK COMFORT CURVE STRIP VI SCH ×7 (00:03→23:51)
[2017-07-07] MEDS: MIDAZOLAM DRIP 50 mg/50mL 50 ML IV SCH (00:13)
[2017-07-07] MEDS: D5W 5% 1,000 ML IV SCH ×2 (00:15→08:42)
[2017-07-07] MEDS: InsuLIN REG 1unit/0.01ml Soln (100units/ml) SC SCH ×7 (04:10→23:54)
[2017-07-07 04:41] LABS: Basophils # (auto) 0 uL; Basophils % (auto) 0.9 % (0.0-2.0); Eosinophils # (auto) 0 uL; Eosinophils % (auto) 0.2 % (0.0-7.0); Hematocrit 30.9 % (36.0-46.0); Hemoglobin 10.3 g/dL (12.2-16.2); Lymphocytes # (auto) 1.4 uL; Lymphocytes % (auto) 27.1 % (10.0-50.0); Mean Corpuscular Hemoglobin 32.4 pg (28.0-32.0); Mean Corpuscular Hgb Conc. 33.2 g/dL (32.0-36.0); Mean Corpuscular Volume 97.7 fL (80.0-100.0); Monocytes # (auto) 0.4 uL; Neutrophils # (auto) 3.4 uL; Neutrophils % (auto) 64.8 % (37.0-80.0); Nucleated Red Blood Cells % 0.1 %; Platelet Count (auto) 201 10^3/uL (140-450); Red Blood Cells 3.17 10^6/uL (4.0-5.20); Red Cell Distribution Width 16.4 % (11.8-14.3); White Blood Cell 5.2 10^3/uL (4.4-10.8)
[2017-07-07 05:08] LABS: Albumin 2.4 g/dL (3.4-5.0); BUN/Creatinine Ratio 10.9; Bilirubin, Total 1.1 mg/dL (0.2-1.0); Calcium 7.9 mg/dL (8.5-10.1); Potassium 4.5 mmol/L (3.5-5.1); Total Protein 5.7 g/dL (6.4-8.2)
[2017-07-07] MEDS: PROPOFOL 100 ML IV SCH (05:30)
[2017-07-07] MEDS: CLINDAMYCIN 600MG IV 50 ML IV SCH ×3 (06:16→21:44)
[2017-07-07] MEDS: NOREPINEPHRINE 8 MG/250ML KIT 250 ML IV SCH (06:49)
[2017-07-07] MEDS: LEVOTHYROXINE SODIUM 88 MCG TAB PO SCH (07:00)
[2017-07-07] MEDS: PANTOPRAZOLE 40 MG TAB PO SCH (09:53)
[2017-07-07] MEDS: D5W/SOD CHL 0.45% 1,000 ML IV SCH ×2 (11:06→23:12)
[2017-07-07] MEDS: INSULIN LANTUS (GLARGINE) 1 /0.01ml (100units/ml) SC SCH (22:53)
[2017-07-07] MEDS: LEVOFLOXACIN 250MG 50 ML IV SCH (23:01)
[2017-07-08] MEDS: MIDAZOLAM DRIP 50 mg/50mL 50 ML IV SCH (00:13)
[2017-07-08] MEDS: TEMAZEPAM 15 MG CAP PO PRN ×2 (02:20→21:48)
[2017-07-08] MEDS: InsuLIN REG 1unit/0.01ml Soln (100units/ml) SC SCH ×5 (04:00→20:00)
[2017-07-08] MEDS: ACCU-CHEK COMFORT CURVE STRIP VI SCH ×5 (04:07→20:05)
[2017-07-08 05:13] VITALS: BP 91/62
[2017-07-08] MEDS: FREE WATER GT SCH ×5 (05:36→23:26)
[2017-07-08] MEDS: CLINDAMYCIN 600MG IV 50 ML IV SCH (05:39)
[2017-07-08] MEDS: NOREPINEPHRINE 8 MG/250ML KIT 250 ML IV SCH (05:58)
[2017-07-08] MEDS: LEVOTHYROXINE SODIUM 88 MCG TAB PO SCH (06:03)
[2017-07-08 07:43] LABS: Potassium 3.3 mmol/L (3.5-5.1)
[2017-07-08 07:48] LABS: Albumin 2.2 g/dL (3.4-5.0); BUN/Creatinine Ratio 17.4; Calcium 8.4 mg/dL (8.5-10.1)
[2017-07-08 08:08] LABS: Bilirubin, Total 0.7 mg/dL (0.2-1.0); Total Protein 5.4 g/dL (6.4-8.2)
[2017-07-08 08:14] VITALS: BP 105/53
[2017-07-08 08:16] LABS: Basophils # (auto) 0 uL; Basophils % (auto) 0.8 % (0.0-2.0); Eosinophils # (auto) 0 uL; Eosinophils % (auto) 0.6 % (0.0-7.0); Hematocrit 35.1 % (36.0-46.0); Hemoglobin 11.7 g/dL (12.2-16.2); Lymphocytes # (auto) 1.9 uL; Lymphocytes % (auto) 36.1 % (10.0-50.0); Mean Corpuscular Hemoglobin 32.1 pg (28.0-32.0); Mean Corpuscular Hgb Conc. 33.4 g/dL (32.0-36.0); Monocytes # (auto) 0.2 uL; Monocytes % (auto) 4.6 % (0.0-12.0); Neutrophils % (auto) 57.9 % (37.0-80.0); Platelet Count (auto) 247 10^3/uL (140-450); Red Blood Cells 3.65 10^6/uL (4.0-5.20); Red Cell Distribution Width 15.4 % (11.8-14.3); White Blood Cell 5.3 10^3/uL (4.4-10.8)
[2017-07-08] MEDS: PANTOPRAZOLE 40 MG TAB PO SCH (11:17)
[2017-07-08] MEDS ORDERED: POTASSIUM CHL 20 Meq TABLET PO ONE (12:45)
[2017-07-08 13:00] VITALS: BP 108/67
[2017-07-08] MEDS: SULFAMETHOX W/TRIMETH(800/160MG) DS TAB PO SCH ×2 (16:15→21:38)
[2017-07-08] MEDS: D5W/SOD CHL 0.45% 1,000 ML IV SCH (16:15)
[2017-07-08 17:00] VITALS: BP 118/75
[2017-07-08] MEDS: DOXYCYCLINE 100 MG TAB/CAP PO SCH (21:38)
[2017-07-08] MEDS: LEVOFLOXACIN 250MG 50 ML IV SCH (21:38)
[2017-07-08] MEDS: INSULIN LANTUS (GLARGINE) 1 /0.01ml (100units/ml) SC SCH (21:56)
[2017-07-08 22:06] VITALS: BP 111/59
[2017-07-09] MEDS: ACCU-CHEK COMFORT CURVE STRIP VI SCH ×6 (00:13→23:56)
[2017-07-09] MEDS: D5W/SOD CHL 0.45% 1,000 ML IV SCH (02:39)
[2017-07-09] MEDS: InsuLIN REG 1unit/0.01ml Soln (100units/ml) SC SCH ×6 (03:57→23:56)
[2017-07-09] MEDS: FREE WATER GT SCH (05:09)
[2017-07-09 05:25] VITALS: BP 121/67
[2017-07-09] MEDS: LEVOTHYROXINE SODIUM 88 MCG TAB PO SCH (06:23)
[2017-07-09 09:00] VITALS: BP 124/56
[2017-07-09 09:32] LABS: Hepatitis B Surface Antigen Negative (Negative)
[2017-07-09] MEDS: SULFAMETHOX W/TRIMETH(800/160MG) DS TAB PO SCH (10:00)
[2017-07-09] MEDS: PANTOPRAZOLE 40 MG TAB PO SCH (10:01)
[2017-07-09] MEDS: DOXYCYCLINE 100 MG TAB/CAP PO SCH (10:01)
[2017-07-09 10:33] LABS: Hepatitis B Core IgM Negative; Hepatitis C Antibody Negative (Negative)
[2017-07-09 10:35] LABS: Hepatitis A Ab IgM Negative
[2017-07-09 12:57] VITALS: BP 121/69
[2017-07-09 17:13] VITALS: BP 114/71
[2017-07-09] MEDS: SOD CHL 0.45% 1,000 ML IV SCH (19:23)
[2017-07-09 20:00] VITALS: BP 118/69
[2017-07-09] MEDS: LEVOFLOXACIN 500MG 100 ML IV SCH (21:40)
[2017-07-09 22:00] VITALS: BP 118/69
[2017-07-09] MEDS: INSULIN LANTUS (GLARGINE) 1 /0.01ml (100units/ml) SC SCH (22:18)
[2017-07-10] MEDS: SOD CHL 0.45% 1,000 ML IV SCH (02:50)
[2017-07-10 05:02] VITALS: BP 117/60
[2017-07-10 05:45] LABS: Basophils # (auto) 0 uL; Basophils % (auto) 0.7 % (0.0-2.0); Eosinophils # (auto) 0 uL; Eosinophils % (auto) 0.8 % (0.0-7.0); Hemoglobin 10.5 g/dL (12.2-16.2); Lymphocytes # (auto) 1.8 uL; Lymphocytes % (auto) 38.9 % (10.0-50.0); Mean Corpuscular Hemoglobin 32.5 pg (28.0-32.0); Mean Corpuscular Volume 95.5 fL (80.0-100.0); Monocytes # (auto) 0.3 uL; Monocytes % (auto) 7.6 % (0.0-12.0); Neutrophils # (auto) 2.3 uL; Platelet Count (auto) 281 10^3/uL (140-450); Red Blood Cells 3.25 10^6/uL (4.0-5.20); Red Cell Distribution Width 14.7 % (11.8-14.3); White Blood Cell 4.5 10^3/uL (4.4-10.8)
[2017-07-10] MEDS: LEVOTHYROXINE SODIUM 88 MCG TAB PO SCH (06:02)
[2017-07-10] MEDS: ACCU-CHEK COMFORT CURVE STRIP VI SCH ×3 (06:02→18:11)
[2017-07-10 06:15] LABS: Albumin 2.4 g/dL (3.4-5.0); BUN/Creatinine Ratio 8.3; Calcium 7.7 mg/dL (8.5-10.1)
[2017-07-10 06:28] LABS: Bilirubin, Total 0.4 mg/dL (0.2-1.0); Total Protein 5.7 g/dL (6.4-8.2)
[2017-07-10] MEDS: InsuLIN REG 1unit/0.01ml Soln (100units/ml) SC SCH ×3 (06:42→18:11)
[2017-07-10 06:47] LABS: Potassium 2.7 mmol/L (3.5-5.1)
[2017-07-10 09:00] VITALS: BP 133/67
[2017-07-10] MEDS: PANTOPRAZOLE 40 MG TAB PO SCH (09:53)
[2017-07-10] MEDS ORDERED: POTASSIUM CHLORIDE 40 MEQ, LIDOCAINE 1% (LOCAL ANESTH.) 4 ML in SODIUM CHL 0.9% 100 ML IV ONE (11:30)
[2017-07-10] MEDS: SOD CHL 0.45% WITH 20MEQ KCL 1,000 ML IV SCH (11:30)
[2017-07-10] MEDS ORDERED: POTASSIUM CHL 20 Meq TABLET PO ONE (11:30)
[2017-07-10 13:00] VITALS: BP 127/75
[2017-07-10] MEDS: MAGNESIUM SULFATE 1GM/100ML 100 ML IV SCH ×2 (16:30→18:02)
[2017-07-10 16:57] VITALS: BP 132/69
[2017-07-10 20:00] VITALS: BP 125/71
[2017-07-10] MEDS: LEVOFLOXACIN 500MG 100 ML IV SCH (21:35)
[2017-07-10 21:51] VITALS: BP 125/71
[2017-07-10] MEDS: TEMAZEPAM 15 MG CAP PO PRN (22:10)
[2017-07-10] MEDS: INSULIN LANTUS (GLARGINE) 1 /0.01ml (100units/ml) SC SCH (22:10)
[2017-07-11] MEDS: ACCU-CHEK COMFORT CURVE STRIP VI SCH ×3 (00:02→12:26)
[2017-07-11] MEDS: InsuLIN REG 1unit/0.01ml Soln (100units/ml) SC SCH ×3 (00:03→12:26)
[2017-07-11] MEDS: SOD CHL 0.45% WITH 20MEQ KCL 1,000 ML IV SCH (00:50)
[2017-07-11 05:39] VITALS: BP 112/62
[2017-07-11] MEDS: LEVOTHYROXINE SODIUM 88 MCG TAB PO SCH (06:27)
[2017-07-11 07:08] LABS: Albumin 2.5 g/dL (3.4-5.0); BUN/Creatinine Ratio 16.2; Bilirubin, Total 0.3 mg/dL (0.2-1.0); Calcium 7.5 mg/dL (8.5-10.1); Magnesium 1.3 mg/dL (1.6-2.6); Potassium 3.5 mmol/L (3.5-5.1)
[2017-07-11 08:17] VITALS: BP 155/69
[2017-07-11 08:46] VITALS: BP 110/68
[2017-07-11] MEDS: PANTOPRAZOLE 40 MG TAB PO SCH (08:49)
[2017-07-11 13:00] VITALS: BP 132/63
== END 2017-07-11 16:00 | disposition home or self-care (01) | DRG 208 ==
LOC: ER 12:39 → OVERFLOW 12:40 → ICU WEST 07-05 04:20 → TELE-WESTW 07-07 19:39 → WEST WING 07-07 20:48
PROVIDERS: ADMIT Internal Medicine; ATTEND Internal Medicine
PROC: 5A1945Z Respiratory Ventilation, 24-96 Consecutive Hours (ICD-10-PCS; principal; 2017-07-04)
PROC: 0BH17EZ Insertion of Endotracheal Airway into Trachea, Via Natural or Artificial Opening (ICD-10-PCS; 2017-07-04)
DX: J96.00 Acute respiratory failure, unspecified whether with hypoxia or hypercapnia (principal); N17.0 Acute kidney failure with tubular necrosis; R57.1 Hypovolemic shock; E11.10 Type 2 diabetes mellitus with ketoacidosis without coma; E87.1 Hypo-osmolality and hyponatremia; R65.10 Systemic inflammatory response syndrome (SIRS) of non-infectious origin without acute organ dysfunction; L89.899 Pressure ulcer of other site, unspecified stage; E03.9 Hypothyroidism, unspecified; E78.5 Hyperlipidemia, unspecified; E87.6 Hypokalemia; F17.210 Nicotine dependence, cigarettes, uncomplicated; F41.9 Anxiety disorder, unspecified; I10 Essential (primary) hypertension; J44.9 Chronic obstructive pulmonary disease, unspecified; B95.61 Methicillin susceptible Staphylococcus aureus infection as the cause of diseases classified elsewhere; K57.30 Diverticulosis of large intestine without perforation or abscess without bleeding; K21.9 Gastro-esophageal reflux disease without esophagitis; K76.0 Fatty (change of) liver, not elsewhere classified; F12.10 Cannabis abuse, uncomplicated; B96.20 Unspecified Escherichia coli [E. coli] as the cause of diseases classified elsewhere; Z91.14 Patient's other noncompliance with medication regimen; Z82.49 Family history of ischemic heart disease and other diseases of the circulatory system; Z83.3 Family history of diabetes mellitus; Z91.19 Patient's noncompliance with other medical treatment and regimen; Z91.013 Allergy to seafood; Z90.49 Acquired absence of other specified parts of digestive tract; Z79.4 Long term (current) use of insulin
CPT/HCPCS: 36415; 36600; 51702; 71045; 74176; 76705; 80048; 80053; 80074; 80307; 81001; 81025; 82010; 82150; 82805; 82962; 83036; 83605; 83690; 83735; 84100; 84443; 85007; 85025; 85027; 85610; 85730; 87040; 87077; 87081; 87186; 87205; 93005; 94002; 94003; 96361; 96365; 96375; 96376; 99291; G0378; J0330; J0610; J1815; J1956; J2001; J2250; J2704; J3480; J3490

== ENCOUNTER 2018-01-28 22:30 | Inpatient (IN) | payer BC ==
[~2018-01-28] VITALS: Ht 154.9 cm; Wt 66.6 kg
[2018-01-28] MEDS ORDERED: SODIUM CHLORIDE 0.9% 1,000 ML IV ONE (23:06)
[2018-01-29] VITALS (16 sets, daily range): BP systolic 103–157; BP diastolic 46–113
[2018-01-29] MEDS ORDERED: SODIUM BICARBONATE 8.4 % INJ 50ML VIAL IV ONE ×2 (00:11→00:30)
[2018-01-29] MEDS ORDERED: InsuLIN REG 1unit/0.01ml Soln (100units/ml) ONE (00:12)
[2018-01-29 00:28] LABS: Hemoglobin 14.5 g/dL (12.2-16.2); Red Cell Distribution Width 14.5 % (11.8-14.3)
[2018-01-29 00:30] LABS: Hematocrit 48.3 % (36.0-46.0); Mean Corpuscular Hemoglobin 30.4 pg (28.0-32.0); Mean Corpuscular Volume 101.3 fL (80.0-100.0); Red Blood Cells 4.77 10^6/uL (4.0-5.20)
[2018-01-29] MEDS ORDERED: DEXTROSE (50%) 50ML SYRG IV PRN ×2 (00:30→14:30)
[2018-01-29 00:33] LABS: Urine Bacteria NONE SEEN /hpf (None Seen); Urine Blood TRACE /uL (Negative); Urine Mucus FEW (None Seen); Urine Specific Gravity 1.016 (1.001-1.035); Urine WBC 1 /hpf (0 - 5)
[2018-01-29 00:35] LABS: Platelet Count (auto) 460 10^3/uL (140-450)
[2018-01-29 00:36] LABS: Basophils % (manual) 0 (0.0-2.0); Blast Cells 0; Eosinophils % (manual) 0 (0-7); Metamyelocytes % 0; Myelocytes % 0; Promyelocytes % 0; Reactive Lymphocytes 0
[2018-01-29] MEDS: InsuLIN R (HUMAN) 100 UNITS in SODIUM CHL 0.9% 99 ML IV SCH ×2 (00:44→03:05)
[2018-01-29 00:49] LABS: Band Neutrophils % (manual) 3; Lymphocytes % (manual) 11 (10.0-50.0); Monocytes % (manual) 4 (0-12)
[2018-01-29] MEDS: SODIUM CHLORIDE 0.9% 1,000 ML IV SCH ×2 (00:50→03:27)
[2018-01-29 00:54] LABS: Albumin 3.7 g/dL (3.4-5.0); Anion Gap 34 (5-15); Blood Urea Nitrogen 36 mg/dL (7-18); Chloride 96 mmol/L (98-107); Magnesium 2.5 mg/dL (1.6-2.6); Sodium 137 mmol/L (136-145)
[2018-01-29 00:57] LABS: Alanine Aminotransferase 46 U/L (13-56); Aspartate Aminotransferase 66 U/L (15-37); Bilirubin, Total 0.4 mg/dL (0.2-1.0); GFR African American 47 mL/min; GFR Non-African American 39 mL/min; Total Protein 7.4 g/dL (6.4-8.2)
[2018-01-29 01:03] LABS: Alkaline Phosphatase 166 U/L (45-117)
[2018-01-29 01:10] LABS: Potassium 6.2 mmol/L (3.5-5.1)
[2018-01-29 01:11] LABS: BUN/Creatinine Ratio 23.8; Carbon Dioxide 7 mmol/L (21-32); Glucose 774 mg/dL (74-106)
[2018-01-29] MEDS ORDERED: SODIUM CHLORIDE 0.9% 1,000 ML IV ONE (01:15)
[2018-01-29] MEDS: ACCU-CHEK COMFORT CURVE STRIP VI SCH ×12 (01:55→22:13)
[2018-01-29] MEDS ORDERED: cefTRIAXone 1GM/50ML D5W 50 ML IV ONE (02:00)
[2018-01-29] MEDS ORDERED: SODIUM BICARB 50ML SYR 100 ML in SODIUM CHLORIDE 0.9% 1,000 ML IV ONE (02:00)
[2018-01-29] MEDS ORDERED: ONDANSETRON HCL 4 MG/2 ML VIAL IV PRN (04:00)
[2018-01-29] MEDS ORDERED: MORPHINE SULFATE 4 MG/ML SYR/VIAL IV PRN (04:00)
[2018-01-29] MEDS ORDERED: ACETAMINOPHEN 500 MG TAB PO PRN (04:00)
[2018-01-29] MEDS ORDERED: SODIUM CHLORIDE 0.9% 1,000 ML IV SCH (04:50)
[2018-01-29] MEDS ORDERED: VANCOMYCIN PER PHARMACY 0 MG IV SCH (05:45)
[2018-01-29] MEDS ORDERED: VANCOMYCIN 1GM/250ML 250 ML IV ONE (06:00)
[2018-01-29 06:07] LABS: Lactic Acid w/Reflex 4.2 mmol/L (0.4-2.0)
[2018-01-29 07:47] LABS: BUN/Creatinine Ratio 24.7; Calcium 7.1 mg/dL (8.5-10.1); Potassium 3.8 mmol/L (3.5-5.1)
[2018-01-29 08:14] LABS: Basophils # (auto) 0.2 uL; Basophils % (auto) 0.9 % (0.0-2.0); Eosinophils # (auto) 0 uL; Hematocrit 34.1 % (36.0-46.0); Hemoglobin 11.2 g/dL (12.2-16.2); Lymphocytes # (auto) 3.4 uL; Lymphocytes % (auto) 18.1 % (10.0-50.0); Mean Corpuscular Hemoglobin 30.6 pg (28.0-32.0); Mean Corpuscular Hgb Conc. 32.9 g/dL (32.0-36.0); Mean Corpuscular Volume 93.2 fL (80.0-100.0); Monocytes # (auto) 1.4 uL; Monocytes % (auto) 7.3 % (0.0-12.0); Neutrophils # (auto) 13.8 uL; Neutrophils % (auto) 73.7 % (37.0-80.0); Platelet Count (auto) 274 10^3/uL (140-450); Red Blood Cells 3.66 10^6/uL (4.0-5.20); Red Cell Distribution Width 13.2 % (11.8-14.3); White Blood Cell 18.8 10^3/uL (4.4-10.8)
[2018-01-29] MEDS: PANTOPRAZOLE 40 MG TAB PO SCH (09:32)
[2018-01-29 13:49] LABS: BUN/Creatinine Ratio 26.7; Calcium 6.8 mg/dL (8.5-10.1); Potassium 3.8 mmol/L (3.5-5.1)
[2018-01-29] MEDS ORDERED: INSULIN LANTUS (GLARGINE) 1 /0.01ml (100units/ml) SC ONE (14:30)
[2018-01-29] MEDS: SOD CHL 0.45% WITH 20MEQ KCL 1,000 ML IV SCH (14:44)
[2018-01-29] MEDS: InsuLIN REG 1unit/0.01ml Soln (100units/ml) SC SCH ×2 (16:38→22:13)
[2018-01-29 20:20] LABS: BUN/Creatinine Ratio 21.3; Calcium 7.1 mg/dL (8.5-10.1)
[2018-01-29 20:23] LABS: Potassium 2.9 mmol/L (3.5-5.1)
[2018-01-30] VITALS (36 sets, daily range): BP systolic 97–146; BP diastolic 46–82
[2018-01-30] MEDS: SOD CHL 0.45% WITH 20MEQ KCL 1,000 ML IV SCH ×4 (00:30→18:19)
[2018-01-30 04:24] LABS: Alanine Aminotransferase 41 U/L (13-56); Albumin 2.3 g/dL (3.4-5.0); Anion Gap 12 (5-15); Aspartate Aminotransferase 37 U/L (15-37); BUN/Creatinine Ratio 17.4; Blood Urea Nitrogen 8 mg/dL (7-18); Calcium 7.1 mg/dL (8.5-10.1); Carbon Dioxide 18 mmol/L (21-32); Chloride 110 mmol/L (98-107); GFR African American 186 mL/min; GFR Non-African American 154 mL/min; Glucose 171 mg/dL (74-106); Potassium 3.2 mmol/L (3.5-5.1); Sodium 140 mmol/L (136-145)
[2018-01-30 04:26] LABS: Alkaline Phosphatase 105 U/L (45-117); Bilirubin, Total 0.5 mg/dL (0.2-1.0)
[2018-01-30 05:26] LABS: Basophils # (auto) 0.1 uL; Basophils % (auto) 0.7 % (0.0-2.0); Eosinophils # (auto) 0 uL; Eosinophils % (auto) 0.1 % (0.0-7.0); Hemoglobin 12.1 g/dL (12.2-16.2); Lymphocytes # (auto) 1.8 uL; Lymphocytes % (auto) 14.6 % (10.0-50.0); Mean Corpuscular Hemoglobin 31.4 pg (28.0-32.0); Mean Corpuscular Hgb Conc. 33.7 g/dL (32.0-36.0); Mean Corpuscular Volume 93.3 fL (80.0-100.0); Monocytes # (auto) 0.6 uL; Neutrophils # (auto) 9.6 uL; Neutrophils % (auto) 79.6 % (37.0-80.0); Nucleated Red Blood Cells % 0.2 %; Platelet Count (auto) 231 10^3/uL (140-450); Red Blood Cells 3.85 10^6/uL (4.0-5.20); Red Cell Distribution Width 13.6 % (11.8-14.3); White Blood Cell 12.1 10^3/uL (4.4-10.8)
[2018-01-30] MEDS: PANTOPRAZOLE 40 MG TAB PO SCH (05:58)
[2018-01-30] MEDS ORDERED: VANCOMYCIN 1GM/250ML 250 ML IV SCH (06:00)
[2018-01-30] MEDS: ACCU-CHEK COMFORT CURVE STRIP VI SCH ×4 (06:05→21:59)
[2018-01-30] MEDS: InsuLIN REG 1unit/0.01ml Soln (100units/ml) SC SCH ×4 (06:16→22:08)
[2018-01-30] MEDS: LEVOTHYROXINE SODIUM 88 MCG TAB PO SCH (06:57)
[2018-01-30] MEDS: cefTRIAXone 1GM/50ML D5W 50 ML IV SCH (09:24)
[2018-01-30] MEDS: LISINOPRIL 10 MG TAB PO SCH (09:24)
[2018-01-30] MEDS: HYDROcodone-ACET 5/325MG TAB PO PRN (14:43)
[2018-01-30] MEDS ORDERED: PANTOPRAZOLE 40 MG/10 ML VIAL IV ONE (15:00)
[2018-01-30] MEDS: POTASSIUM CHL 20MEQ/100ML 100 ML IV SCH ×2 (17:00→17:41)
[2018-01-30] MEDS: MORPHINE SULFATE 4 MG/ML SYR/VIAL IV PRN ×2 (17:57→22:16)
[2018-01-30] MEDS: PANTOPRAZOLE 40 MG/10 ML VIAL IV SCH (21:59)
[2018-01-30] MEDS ORDERED: INSULIN LANTUS (GLARGINE) 1 /0.01ml (100units/ml) SC SCH (22:00)
[2018-01-31] VITALS (32 sets, daily range): BP systolic 97–131; BP diastolic 52–79
[2018-01-31 04:13] LABS: Basophils # (auto) 0 uL; Basophils % (auto) 0.4 % (0.0-2.0); Eosinophils # (auto) 0 uL; Eosinophils % (auto) 0.8 % (0.0-7.0); Hematocrit 34.5 % (36.0-46.0); Hemoglobin 11.8 g/dL (12.2-16.2); Lymphocytes # (auto) 2.2 uL; Lymphocytes % (auto) 44.2 % (10.0-50.0); Mean Corpuscular Hemoglobin 31.7 pg (28.0-32.0); Mean Corpuscular Hgb Conc. 34.2 g/dL (32.0-36.0); Mean Corpuscular Volume 92.9 fL (80.0-100.0); Monocytes # (auto) 0.3 uL; Monocytes % (auto) 6.2 % (0.0-12.0); Neutrophils # (auto) 2.4 uL; Neutrophils % (auto) 48.4 % (37.0-80.0); Nucleated Red Blood Cells % 0.1 %; Platelet Count (auto) 221 10^3/uL (140-450); Red Blood Cells 3.71 10^6/uL (4.0-5.20); Red Cell Distribution Width 13.3 % (11.8-14.3)
[2018-01-31 04:24] LABS: INR 0.95 (0.9-1.15); Partial Thromboplastin Time 23.5 sec (23.78-33.04); Prothrombin Time 10.2 sec (9.27-12.13)
[2018-01-31 04:40] LABS: Calcium 7.9 mg/dL (8.5-10.1); Potassium 3.8 mmol/L (3.5-5.1)
[2018-01-31] MEDS: LEVOTHYROXINE SODIUM 88 MCG TAB PO SCH (06:00)
[2018-01-31] MEDS: ACCU-CHEK COMFORT CURVE STRIP VI SCH ×4 (06:44→22:17)
[2018-01-31] MEDS: InsuLIN REG 1unit/0.01ml Soln (100units/ml) SC SCH ×4 (06:44→22:16)
[2018-01-31] MEDS: SOD CHL 0.45% WITH 20MEQ KCL 1,000 ML IV SCH (06:44)
[2018-01-31] MEDS ORDERED: SODIUM CHLORIDE LOCK 10 ML ONE (08:19)
[2018-01-31] MEDS ORDERED: diphenhdrAMINE 50mg/ml (500mg/10ml VIAL) ONE (08:19)
[2018-01-31] MEDS ORDERED: LIDOCAINE VISCOUS 2% 15ML UD ONE (08:20)
[2018-01-31] MEDS ORDERED: PANTOPRAZOLE 40 MG/10 ML VIAL IV SCH (10:00)
[2018-01-31] MEDS: LISINOPRIL 10 MG TAB PO SCH (10:00)
[2018-01-31] MEDS: cefTRIAXone 1GM/50ML D5W 50 ML IV SCH (10:28)
[2018-01-31] MEDS: PANTOPRAZOLE 40 MG/10 ML VIAL IV SCH (10:29)
[2018-01-31] MEDS: fentaNYL CITRATE 100 MCG/2 ML VL ONE ×2 (10:34→10:37)
[2018-01-31] MEDS: MIDAZOLAM HCL 5 MG/ML-1ML VIAL ONE ×2 (10:34→10:37)
[2018-01-31] MEDS: HYDROcodone-ACET 5/325MG TAB PO PRN (18:14)
[2018-01-31] MEDS ORDERED: INSULIN LANTUS (GLARGINE) 1 /0.01ml (100units/ml) SC SCH (22:00)
[2018-01-31] MEDS: PANTOPRAZOLE 40 MG TAB PO SCH (22:15)
[2018-02-01] MEDS: HYDROcodone-ACET 5/325MG TAB PO PRN ×2 (04:08→08:40)
[2018-02-01 05:00] VITALS: BP 123/78
[2018-02-01] MEDS: InsuLIN REG 1unit/0.01ml Soln (100units/ml) SC SCH ×2 (06:15→13:05)
[2018-02-01] MEDS: LEVOTHYROXINE SODIUM 88 MCG TAB PO SCH (06:15)
[2018-02-01] MEDS: SOD CHL 0.45% WITH 20MEQ KCL 1,000 ML IV SCH (06:15)
[2018-02-01] MEDS: ACCU-CHEK COMFORT CURVE STRIP VI SCH ×2 (06:16→13:04)
[2018-02-01 06:52] LABS: Calcium 8.5 mg/dL (8.5-10.1); Potassium 3.7 mmol/L (3.5-5.1)
[2018-02-01 08:39] VITALS: BP 106/68
[2018-02-01] MEDS: cefTRIAXone 1GM/50ML D5W 50 ML IV SCH (08:40)
[2018-02-01] MEDS: PANTOPRAZOLE 40 MG TAB PO SCH (08:41)
[2018-02-01] MEDS: LISINOPRIL 10 MG TAB PO SCH (08:41)
[2018-02-01 13:00] VITALS: BP 115/73
[2018-02-01 14:39] VITALS: BP 115/73
== END 2018-02-01 16:30 | disposition home or self-care (01) | DRG 637 ==
LOC: ER 22:35 → TELE 01-29 04:06 → ICU WEST 01-29 05:39 → CENTRAL 01-31 07:40 → TELE-CENTR 01-31 07:42
PROVIDERS: ADMIT Nurse Practitioner Family; ATTEND Internal Medicine
PROC: 0DB48ZX Excision of Esophagogastric Junction, Via Natural or Artificial Opening Endoscopic, Diagnostic (ICD-10-PCS; principal; 2018-01-31 10:30)
DX: E11.10 Type 2 diabetes mellitus with ketoacidosis without coma (principal); N17.0 Acute kidney failure with tubular necrosis; N39.0 Urinary tract infection, site not specified; R65.10 Systemic inflammatory response syndrome (SIRS) of non-infectious origin without acute organ dysfunction; K29.80 Duodenitis without bleeding; K29.70 Gastritis, unspecified, without bleeding; N93.9 Abnormal uterine and vaginal bleeding, unspecified; K21.0 Gastro-esophageal reflux disease with esophagitis; E03.9 Hypothyroidism, unspecified; E78.5 Hyperlipidemia, unspecified; E86.0 Dehydration; E87.5 Hyperkalemia; E87.6 Hypokalemia; F12.90 Cannabis use, unspecified, uncomplicated; F15.90 Other stimulant use, unspecified, uncomplicated; F17.210 Nicotine dependence, cigarettes, uncomplicated; R13.10 Dysphagia, unspecified; N95.0 Postmenopausal bleeding; F41.9 Anxiety disorder, unspecified; I10 Essential (primary) hypertension; Z96.41 Presence of insulin pump (external) (internal); R06.03 Acute respiratory distress; F19.10 Other psychoactive substance abuse, uncomplicated; Z79.4 Long term (current) use of insulin; Z79.899 Other long term (current) drug therapy; Z83.3 Family history of diabetes mellitus; Z91.19 Patient's noncompliance with other medical treatment and regimen; Z90.49 Acquired absence of other specified parts of digestive tract; Z91.013 Allergy to seafood; Z79.890 Hormone replacement therapy
CPT/HCPCS: 36415; 36600; 43239; 71045; 72195; 76856; 80048; 80053; 81001; 81025; 82010; 82805; 82962; 83036; 83605; 83735; 83930; 84100; 84443; 84484; 85007; 85025; 85027; 85610; 85730; 87040; 87081; 96361; 96365; 96367; 96375; C9113; G0378; J0696; J1200; J1815; J2250; J3480